=== PATIENT | female | born 1990 | race Caucasian/White ===

== ENCOUNTER 2021-12-18 17:23 | Emergency (ER) | payer OTHER, SELFPAY ==
--- NOTE | 2021-12-18 17:27 | ED.EYEPROB ---
HPI - Eye Problem General Chief complaint: Eye Problems Stated complaint: Eye Problem Time Seen by Provider: 12/18/21 17:39 Source: patient and RN notes reviewed Mode of arrival: ambulatory Limitations: no limitations History of Present Illness HPI Narrative: 31-year-old female presents with concern for right eye irritation, redness, pain. She reports several days ago when she was getting her hair colored eye color splashed in her eye. She reports the next morning she began having pain. She reports mild redness. She denies vision changes, drainage from the eye. She does not wear contact lenses. chief complaint: eye pain Related Data Allergies Allergy/AdvReac Type Severity Reaction Status Date / Time No Known Allergies Allergy Verified 12/18/21 17:40 Review of Systems Review of Systems: CONSTITUTIONAL: Denies malaise, chills, sweats, or fever. EYES: Denies visual changes, discharge. Reports redness, irritation, to the right eye ENT: Denies rhinorrhea, congestion, sinus pain, otalgia or sore throat. SKIN: Denies rash or itching. NEUROLOGIC: Denies numbness, weakness, or headache. PSYCHIATRIC: Denies anxiety or depression. All systems reviewed & are unremarkable except as noted in HPI and below PMFSH Comments At time of signature, agree with nursing past medical, surgical, social and family history. There is no relevant family history pertinent to the presenting complaint Exam Narrative: GENERAL: Well-appearing, well-nourished, and in no acute distress. HEAD: Normocephalic, atraumatic. EYES: PERRLA, left sclera clear, and EOMI. No nystagmus. Conjunctivae not injected. Lower eyelid unremarkable, no periorbital edema noted. Right sclera injected with mild upper eyelid edema ENT: Nares clear. Mucous membranes moist. TM pearly silveira with sharp light reflex bilaterally; no tragal tenderness. NECK: Supple. CHEST: No respiratory distress. Speaks in full sentences. HEART: Regular rate and rhythm. SKIN: Warm, dry, no visible rash. NEURO: Alert and oriented x3. PSYCH: Normal mood and affect Course Course Emergency Course: Patient is aware of diagnosis, understands and agrees to treatment plan. Anticipatory guidance given. Patient agrees to follow-up as directed and is aware of reasons to seek care at the emergency department. Portions of this record may have been created with voice recognition software Level of Care: Express Care Visit Vital Signs Vital signs: Reviewed. MDM - Eye Problem MDM Narrative Medical decision making narrative: Consideration of the following conditions may be warranted for the presenting problem, they are not final diagnoses: Bacterial conjunctivitis, allergic conjunctivitis, viral conjunctivitis, foreign body, blepharitis, chalazion, hordeolum, corneal abrasion, preseptal cellulitis, orbital cellulitis. No evidence of proptosis, ophthalmoplegia, vision loss, pain with eye movement. Exam findings show no acute concerns or changes; patient is non-toxic appearing and is in no distress. Patient is appropriate for outpatient treatment and follow-up. Critical Care Time Critical Care Time Critical Care Time: No Discharge Plan Discharge Clinical Impression: Conjunctivitis Qualifiers: Conjunctivitis type: acute Acute conjunctivitis type: unspecified Laterality: right Qualified Code(s): H10.31 - Unspecified acute conjunctivitis, right eye Patient Disposition: Home, Self-Care Condition: Stable Instructions: Conjunctivitis (ED) Additional Instructions: Do not touch or rub your eye. Use a warm or cool washcloth on your eye for comfort Use eyedrops as directed You may take Tylenol or ibuprofen for pain Follow-up with PCP or community product specialist if condition is not improving in 2-3days. Go to the emergency room if you have pain behind your eye, pressure behind her eye, difficulty seeing, or other severe symptoms Prescriptions: New neomycin-polymyxin B-dexameth 3.5mg/mL-10,000 unit/mL-0.1
[2021-12-18 17:30] VITALS: BP 114/72; PULSE 81; RESP 14; TEMP 36.7; O2SAT 99
[2021-12-18 17:40] VITALS: BP 114/72; PULSE 81; RESP 14; TEMP 36.7; O2SAT 99
== END 2021-12-18 17:51 | disposition home or self-care (01) ==
PROVIDERS: Emergency Provider Nurse Practitioner
DX: H10.31 Unspecified acute conjunctivitis, right eye (principal)
CPT/HCPCS: 99213; G0463

== ENCOUNTER 2021-12-25 03:40 | Observation (INO) | payer OTHER, SELFPAY ==
[2021-12-25] VITALS (13 sets, daily range): BP systolic 102–129; BP diastolic 56–77; PULSE 66–94; RESP 15–18; TEMP 36–36.7; O2SAT 97–100; BMI 28.8
--- NOTE | ~2021-12-25 | XR_ITS ---
EXAMINATION: XR chest 1V portable 12/25/2021 04:13 INDICATION: Chest pain PROCEDURE: 2 view chest COMPARISON: No prior studies for comparison. FINDINGS: The lungs are clear. The cardiomediastinal silhouette is within normal limits. There are no pleural effusions. There is no pneumothorax suspected. IMPRESSION: 1: NO ACUTE CARDIOPULMONARY DISEASE. Reviewed, dictated and finalized at location A. T DESK ADMIN
--- NOTE | 2021-12-25 03:43 | ECG_ITS ---
Measurements Intervals Maxwell Rate: 82 P: 10 MA: 132 QRS: 74 QRSD: 94 T: 35 QT: 389 QTc: 456 Interpretive Statements SINUS RHYTHM BORDERLINE T WAVE ABNORMALITY- ANTERIOR LEADS BASELINE ARTIFACT- I, II, III, AVR, AVL, V6 BORDERLINE ECG Electronically Signed On 12-25-2021 7:38:54 REPRODUCTIVE SURGEON by Sean Velazquez D.O.
--- NOTE | 2021-12-25 03:52 | ED.CHESTPAIN ---
HPI - Chest Pain General Chief Complaint: Chest Pain Stated Complaint: chest pain Time Seen by Provider: 12/25/21 03:43 Source: patient and RN notes reviewed Mode of arrival: ambulatory Limitations: no limitations History of Present Illness HPI narrative: 31-year-old female with no significant past medical history presented to the emergency department for evaluation of sharp chest pain. Patient states that she developed chest pain today. Patient states pain is substernal and sharp and brief. Patient states the pain is worsened with deep inspiration or with coughing. Patient does smoke. Patient is not vaccinated to COVID. Patient denies any associated fevers. Patient denies any recent long car rides or car trips. Patient is not on hormone therapy. Patient denies any prior history of PE or DVT. Patient denies any falls or injuries. Patient denies any cardiac history. Patient denies any new medications. Patient denies any recent illnesses other than a dry nonproductive cough Related Data Allergies Allergy/AdvReac Type Severity Reaction Status Date / Time No Known Allergies Allergy Verified 12/18/21 17:40 Review of Systems Review of Systems: CONSTITUTIONAL: Denies fever, chills, or sweats. EYES: Denies visual changes, redness, or discharge. ENT: Denies rhinorrhea, congestion, sore throat, or otalgia. CARDIOVASCULAR: Pleuritic chest pain worsened with deep inspiration and movement RESPIRATORY: Denies cough or dyspnea. GASTROINTESTINAL: Denies abdominal pain, nausea, vomiting, or diarrhea. GENITOURINARY: Denies dysuria or hematuria. SKIN: Denies rash or itching. MUSCULOSKELETAL: Denies back pain, joint pain, or myalgia. NEUROLOGIC: Denies headache, numbness, or weakness. All systems reviewed & are unremarkable except as noted in HPI and below Course Course Emergency Course: Patient does have an elevated troponin. Cardiology was consulted. Case was discussed with the hospitalist and patient was admitted with cardiology consult. Patient was stable at time of transfer the floor. Reevaluation(s) Reevaluation #1: Patient was updated on the results of her labs and imaging including the elevated troponin. Patient states that her pain is intermittent. Nitro was held because she was not having any active pain at the time. Patient was given aspirin. Patient was updated on the plan for admission and further cardiac work-up. Consultations Consultation #1: Dr. Becerril was consulted for cardiology. She did agree with the plan for admission and further cardiac work-up. She said to hold off on any heparin due to the possibility of pericarditis as the underlying etiology. Vital Signs Vital signs: Vital Signs Temperature 97.6 F 12/25/21 03:48 Pulse Rate 78 12/25/21 03:48 Respiratory Rate 16 12/25/21 03:48 Blood Pressure 125/69 12/25/21 03:48 Pulse Oximetry 100 12/25/21 03:48 Temperature 97.6 F 12/25/21 03:48 Pulse Rate 77 12/25/21 05:35 Respiratory Rate 18 12/25/21 05:35 Blood Pressure 117/71 12/25/21 05:35 Pulse Oximetry 98 12/25/21 05:35 MDM - Chest Pain Lab Data Attestation: I reviewed the patient's lab results. Result diagrams: 12/25/21 03:58 12/25/21 03:58 Labs: Lab Results 12/25/21 12/25/21 12/25/21 Range/Units 03:58 03:58 03:58 WBC 8.3 (4.5-10.0) K/mm3 RBC 3.87 L (4.2-5.4) M/mm3 Hgb 11.9 L (12.0-15.0) g/dL Hct 35.8 L (37.0-47.0) % MCV 92.5 (80-100) fl MCH 30.7 (26-34) pg MCHC 33.2 (32-36) g/dl RDW 12.3 (11.5-14.5) % Plt Count 279 (150-375) k/mm3 MPV 10.2 (7.4-10.4) fl Immature Gran % (Auto) 0.2 (0-0.5) % Neut % (Auto) 47.7 (45.5-73.1) % Lymph % (Auto) 39.0 (18.3-44.2) % Bland % (Auto) 10.0 H (2.6-8.5) % Eos % (Auto) 2.3 (0-4.4) % Baso % (Auto) 0.8 (0.2-1.2) % Lymph # (Auto) 3.25 H (0.9-3.2) K/mm3 Bland # (Auto) 0.8 H (0.1-0.6) K/mm3 Eos # (Auto) 0.2 (0-0.3) K
[2021-12-25 04:04] LABS: Basophils Absolute Auto 0.1 K/mm3 (0.0-0.1); Basophils Percent Auto 0.8 % (0.2-1.2); Eosinophils Absolute Auto 0.2 K/mm3 (0-0.3); Eosinophils Percent Auto 2.3 % (0-4.4); Hematocrit 35.8 % (37.0-47.0); Hemoglobin 11.9 g/dL (12.0-15.0); Immature Granulocyte Absolute 0.02 K/mm3 (0.00-0.031); Immature Granulocyte Percent A 0.2 % (0-0.5); Lymphocytes Absolute Auto 3.25 K/mm3 (0.9-3.2); Mean Corpuscular HGB Conc 33.2 g/dl (32-36); Mean Corpuscular Hemoglobin 30.7 pg (26-34); Mean Corpuscular Volume 92.5 fl (80-100); Mean Platelet Volume 10.2 fl (7.4-10.4); Monocytes Absolute Auto 0.8 K/mm3 (0.1-0.6); Neutrophils Percent Auto 47.7 % (45.5-73.1); Platelet Count Result 279 k/mm3 (150-375); Red Blood Count 3.87 M/mm3 (4.2-5.4); Red Cell Distribution Width 12.3 % (11.5-14.5); White Blood Count 8.3 K/mm3 (4.5-10.0)
[2021-12-25 04:17] LABS: Add Urine Microscopic? YES; Appearance Urine Cloudy (Clear); Bacteria Urine Trace /hpf; Bilirubin Urine Negative (Negative); Blood Urine 2+ (Negative); Color Urine Straw (Yellow); Glucose Urine UA Negative (Negative); Ketones Urine Negative (Negative); Leukocyte Esterase Ur Trace LEU/UL (Negative); Mucus Urine Rare /lpf; Nitrate Urine Negative (Negative); Protein Urine Negative (Negative); RBC Urine 0-2 /hpf (0-2); Squamous Epithelial Cell Urine Many /hpf (Few); Urobilinogen Urine Negative mg/dL (<2.0)
[2021-12-25 04:18] LABS: Specific Grav Ur 1.004 (1.001-1.035)
[2021-12-25 04:18] LABS: Alanine Aminotransferase 36 U/L (4-35); Albumin Level 4.7 g/dL (3.5-5.1); Alkaline Phosphatase 70 U/L (38-126); Anion Gap 9 mmol/L (8-16); Aspartate Amino Transferase 34 U/L (14-36); Bilirubin,Total 0.3 mg/dL (0.2-1.3); Blood Urea Nitrogen 16 mg/dL (7-17); Calcium 9.6 mg/dL (8.4-10.2); Carbon Dioxide 24 mmol/L (22-30); Chloride 103 mmol/L (98-107); Estimated CRCL calculation 81 ml/min; Estimated Glomerular Filt Rate > 60; Glucose 103 mg/dL (65-110); Potassium 3.1 mmol/L (3.4-5.0); Sodium 136 mmol/L (137-145)
[2021-12-25 04:42] LABS: D Dimer 0.27 ug/mL (<0.48)
[2021-12-25 04:47] LABS: Troponin I 0.072 ng/mL (0.000-0.034)
[2021-12-25] MEDS: ASPIRIN 81 MG CHEWABLE TABLET 324 MG PO (04:59)
[2021-12-25] MEDS: POTASSIUM CHLORIDE 20 MEQ PACKET (FOR LIQUID) 40 MEQ PO (04:59)
[2021-12-25 05:47] LABS: SARS-CoV-2 RNA PCR Negative
--- NOTE | 2021-12-25 06:22 | ADMGEN ---
This patient, Caroline Sanders, was admitted to 2 Medical Room 248-. Patient/family oriented to hospital policies and general routines including ID bracelet, bed and alarms, visiting hours, pain management, procedures, bathroom and other care routines, personal items, smoking policy, room service/diet, and visiting hours. Information on how to activate the Rapid Response Team has been discussed. Patient/Family are encouraged to report perceived risks to care and to ask questions if they do not understand what they are told or what they should do.
[2021-12-25 07:46] LABS: Troponin I 0.071 ng/mL (0.000-0.034)
[2021-12-25 08:05] LABS: Magnesium 2.2 mg/dL (1.6-2.3)
--- NOTE | 2021-12-25 08:57 | PM.IMHP ---
H&P: HPI History of Present Illness Date/Time: 12/25/21 08:57 Chief Complaint: CP Narrative: Patient is a 31-year-old woman with no chronic medical history in on any medications, who presents emergency room with chest pain which began around 2:00 a.m. while at work. Patient states she has been having intermittent chest pain over the last few months had been seen multiple times the emergency room in [place] for her symptoms. She states the chest pain is usually her left upper/ mid chest wall and it feels like sharp/ stabbing pain. She does not have any exacerbating factors. Usually her chest pain improves if she takes half of a 325 mg aspirin and lays down for a while. She denies any associated shortness of breath, cough, pain with taking a deep breath, nausea, diaphoresis, dyspnea with exertion or any other symptoms. 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 She was not doing anything strenuous when her symptoms began in became worse rated a 5/10 and was not resolving so she came to the emergency room for further evaluation workup. She did have some reproducible tenderness with palpation earlier, but now it is resolved. She believes at the aspirin in the emergency room help with her chest discomfort. She does report having some issues with anxiety. She denies being under any increased stress prior to her chest pain coming on last night. she denies any fevers, chills, recent cold or flu symptoms, nausea, vomiting, abdominal pain, diarrhea, leg swelling, calf pain, dysuria, frequent urination, lightheadedness, dizziness, or any other symptoms at this time. Review of Systems Review of Systems: All systems reviewed & are unremarkable except as noted in HPI and below [facility] Past Medical History Medical History (Updated 12/25/21 @ 09:02 by Lisa Noriega PA-C) No pertinent past medical history Surgical History Surgical History (Updated 12/25/21 @ 09:02 by Lisa Noriega PA-C) History of tubal ligation Family History Family History (Updated 12/25/21 @ 09:02 by Lisa Noriega PA-C) Other Acute myocardial infarction Other No pertinent family history Social History Social History (Updated 12/25/21 @ 09:04 by Lisa Noriega PA-C) Years smoked: 16 Smoking status: Current every day smoker Tobacco type: cigarettes Alcohol intake: current Drinks per week: 1 Alcohol use details: social alcohol use. 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 at a [place] [facility] [employer] [facility] Spiritual care concerns: No Meds Home Medications and Allergies Home Medications Medication Instructions Recorded Confirmed Type neomycin-polymyxin B-dexameth 1 drp RIGHT EYE Q6H 7 Days #5 ml 12/18/21 12/25/21 Rx Allergies Allergy/AdvReac Type Severity Reaction Status Date / Time No Known Allergies Allergy Verified 12/25/21 06:34 Vital Signs Vital Signs - 24 hr 12/25/21 03:48 12/25/21 03:57 12/25/21 04:51 Temperature 97.6 F Pulse Rate 78 82 90 Respiratory Rate 16 15 Blood Pressure 125/69 103/61 Pulse Oximetry 100 100 97 12/25/21 05:04 12/25/21 05:35 12/25/21 06:20 Temperature Pulse Rate 78 77 72 Respiratory Rate 15 18 15 Blood Pressure 129/77 117/71 111/63 Pulse Oximetry 100 98 100 12/25/21 06:24 Temperature 96.8 F L Pulse Rate 94 Respiratory Rate 18 Blood Pressure 110/58 L Pulse Oximetry 99 Exam Narrative: General: 31-year-old woman sitting up in bed on her phone watching TV. Appears comfortable. In no acute distress. Skin: No jaundice or cyanosis. Good skin turgor. Neck: Full range of motion. Supple.
--- NOTE | 2021-12-25 09:33 | PM.CNCAR ---
Assessment and Plan Assessment and plan (1) Myopericarditis: Code(s): I31.9 - Disease of pericardium, unspecified Status: Acute Assessment and Plan: 31-year-old female with no known prior cardiac history. Patient admitted to the hospital with complaints of sharp, transient substernal chest pain with features atypical for ischemia. EKG did not show any significant ST-T abnormality. Troponins are minimally elevated and essentially flat. Clinical presentation suggestive of myopericarditis. Patient is currently not and had history of tubal ligation. -check echocardiogram with Doppler to assess LV/RV function, valves and pericardium. -will initiate on ibuprofen plus colchicine along with PPI. -avoid strenuous activity for now. (2) Tobacco abuse: Code(s): Z72.0 - Tobacco use Status: Acute Assessment and Plan: I counseled patient for smoking cessation. History of Present Illness History of Present Illness Consult date/time: 12/25/21 09:33 DATE OF CONSULT: 12/25/2021 REASON FOR CONSULT: Elevated troponin REQUESTING PHYSICIAN:Wero Reno MD CHIEF COMPLAINT: Chest pain HPI: 31-year-old female with no known prior cardiac history; tobacco abuse. Patient presented to [facility] Emergency Room on 12/25/2021 with complaints of chest pain. Patient states that she has had off and on chest pain for last few months which he describes as sharp sensation in the substernal area, not related to exertion. She states that her chest pain worse last night and decided come to the hospital. She has been having dry cough. ER notes indicate that chest pain gets worse with cough and is on deep inspiration. However, today, patient denies those associations. She denied any other associated symptoms including shortness of breath, palpitation, dizziness or syncope. She denied any fever chills or any myalgias. No recent long distance travel. She denies any recent known infections. Patient is a smoker, smokes half pack per day. She denies any alcohol or any recreational drugs. 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 EKG on my personal evaluation showed sinus rhythm without significant ST-T abnormality. 2 sets of troponins minimally elevated and essentially flat. BNP unremarkable. D-dimer negative. CRP 0.6. Chest x-ray normal. Initial test negative for SARS-CoV-2 RNA. Reason For Visit: CP, Elevated Troponin Review of Systems Review of Systems: General: Negative for fever, chills, fatigue Psychological: Negative for anxiety, depression Ophthalmic: negative for loss of vision ENT: Negative for epistaxis, headaches Allergy and immunology: Negative for hives, nasal congestion Hematologic and lymphatic: Negative for overt bleeding problems Endocrine: Negative for hot flashes, palpitations Respiratory: Negative for cough, hemoptysis Cardiovascular: Positive for chest pain, negative for shortness of breath, palpitation, dizziness Gastrointestinal: Negative for abdominal pain Musculoskeletal: Negative for myalgia, joint pains Neurological: Negative for weakness Dermatological: Negative for rash, skin discoloration PMFSH Past Medical History Medical History No pertinent past medical history Surgical History Surgical History History of tubal ligation Family History Family History Other Acute myocardial infarction Other No pertinent family history Social History Social History Years smoked: 16 Smoking status: Current every day smoker Tobacco type: cigarettes Alcohol intake: current Drinks per week: 1 Alcohol use details: social alcohol use. Last drank 12/23/2021 Substance use: never Substance use type: does not use Living arrangements: with family Additional living arrangement
[2021-12-25 10:13] LABS: CRP 0.6 mg/dL (<1.0)
[2021-12-25 10:18] LABS: NT Pro B Type Natriuretic Pept 38 pg/mL (5-100)
[2021-12-25] MEDS: ACETAMINOPHEN 325 MG TABLET 650 MG PO (10:34)
[2021-12-25 11:25] LABS: Thyroid Stimulating Hormone Reflex 0.717 uIU/mL (0.465-4.68)
[2021-12-25] MEDS: IBUPROFEN 400 MG TABLET PO ×2 (12:49→17:25)
[2021-12-25] MEDS: COLCHICINE 0.6 MG TABLET PO (20:17)
[2021-12-26] VITALS: PULSE 57
--- NOTE | 2021-12-26 | ECHO_ITS ---
Patient Info Name: Caroline Sanders Age: 31 years : 1990 Gender: Female Ht: 67 in Wt: 184 lbs BSA: 2.01 m2 HR: 65 bpm BP: 105 / 55 mmHg Heart Rhythm: Sinus Rhythm Technical Quality: Fair Exam Date: 12/26/2021 7:52 AM Exam Location: [facility] Patient Status: Inpatient Admit Date: 12/25/2021 Staff Ordering Physician: Lisa Noriega PA-C Diamond Mounter: Ofelia Reddy RDCS Attending Provider: Lisa Noriega PA-C Referring Physician: Hari GONZALEZ; Exam Type: CA echo doppler with color flow transthoracic echocardiogram Study Info Indications - CP, Possible myopericarditis Complete two-dimensional, color flow and Doppler transthoracic echocardiogram is performed. Summary 1. Complete two-dimensional, color flow and Doppler transthoracic echocardiogram is performed. 2. Left ventricular chamber dimension is normal. 3. Left ventricular systolic function is normal, estimated at 65-70%. 4. There is no increased left ventricular wall thickness. 5. Left ventricular septal wall motion is normal. 6. The left ventricular diastolic function is normal. 7. There is mild tricuspid valve regurgitation. 8. Dilated inferior vena cava with <50% collapse upon inspiration consistent with elevated right atrial pressure, 15 mmHg. Left Ventricle Left ventricular chamber dimension is normal. Left ventricular systolic function is normal, estimated at 65-70%. There is no increased left ventricular wall thickness. Left ventricular septal wall motion is normal. The left ventricular diastolic function is normal. Right Ventricle Right ventricular chamber dimension is normal. Right ventricular systolic function is normal. Left Atria Left atrial chamber dimension is normal. Right Atria Right atrial chamber dimension is normal. Atrial Septum Intact interatrial septum visualized by color flow imaging. Aortic Valve The aortic valve is trileaflet. There is mild aortic valve sclerosis. There is no aortic valve stenosis. There is trace aortic valve regurgitation. Pulmonic Valve The pulmonic valve is normal. There is no pulmonic valve stenosis. There is trace pulmonic regurgitation. Mitral Valve The mitral valve has normal leaflets. There is no mitral valve stenosis. There is trace mitral valve regurgitation. Tricuspid Valve The tricuspid valve leaflets are normal. There is no significant tricuspid valve stenosis. There is mild tricuspid valve regurgitation. No pulmonary hypertension, estimated pulmonary arterial systolic pressure is 29 mmHg. Pericardium/Pleural The pericardium appears normal. There is no pericardial effusion. Inferior Vena Cava Dilated inferior vena cava with <50% collapse upon inspiration consistent with elevated right atrial pressure, 15 mmHg. Aorta The aortic root size at the sinus of Valsalva is normal. The prox ascending aorta size is normal. Left Ventricular Outflow Tract Name Value Normal LVOT 2D LVOT Diameter 2.00 cm LVOT Doppler LVOT Peak Gradient 5 mmHg LVOT Mean Gradient 2 mmHg L
[2021-12-26 04:00] VITALS: PULSE 64
[2021-12-26 05:51] LABS: Anion Gap 4 mmol/L (8-16); Blood Urea Nitrogen 13 mg/dL (7-17); Calcium 9.2 mg/dL (8.4-10.2); Carbon Dioxide 27 mmol/L (22-30); Chloride 107 mmol/L (98-107); Estimated CRCL calculation 99 ml/min; Estimated Glomerular Filt Rate > 60; Glucose 94 mg/dL (65-110); Potassium 4.2 mmol/L (3.4-5.0); Sodium 138 mmol/L (137-145)
[2021-12-26 06:31] VITALS: BP 105/55; PULSE 65; RESP 16; TEMP 36.8; O2SAT 100
[2021-12-26 08:00] VITALS: PULSE 68
[2021-12-26] MEDS: IBUPROFEN 400 MG TABLET PO ×2 (08:34→12:14)
[2021-12-26] MEDS: COLCHICINE 0.6 MG TABLET PO (08:34)
[2021-12-26] MEDS: PANTOPRAZOLE SOD SESQUIHYDRATE 20 MG TAB PO (08:34)
--- NOTE | 2021-12-26 08:47 | PM.PNCARD ---
Progress Note: A&P Assessment and Plan (1) Myopericarditis: Code(s): I31.9 - Disease of pericardium, unspecified Status: Acute Assessment and Plan: 31-year-old female with no known prior cardiac history. Patient admitted to the hospital with complaints of sharp, transient substernal chest pain with features atypical for ischemia. EKG did not show any significant ST-T abnormality. Troponins are minimally elevated and essentially flat. Clinical presentation suggestive of myopericarditis. Patient is currently not and had history of tubal ligation. Feels better today, denies chest pain at rest. Some pain with activity Echo showed normal EF, no significant valve pathology. Continue Ibuprofen 400mg t.i.d - will taper as outpatient Continue colchicine 0.6mg b.i.d. - will taper as outpatient Continue PPI Avoid strenuous activity for the time being. (2) Tobacco abuse: Code(s): Z72.0 - Tobacco use Status: Acute Assessment and Plan: She has been counseled on smoking cessation Subjective Date/time seen: 12/26/21 08:47 Cardiology follow up for pericarditis Feeling better today. Denies any chest pain at rest or with deep breathing, does say she has some pain when she is up and moving around. No other complaints. Wants to go home. Review of Systems Review of Systems: All systems reviewed & are unremarkable except as noted in HPI and below Exam Const: General: healthy appearing, comfortable and no acute distress HENMT: Head: normal to inspection Ears: hearing grossly normal bilaterally Eyes: General: appearance normal, both eyes and all related structures Resp: Effort & Inspection: normal respiratory effort Auscultation: clear to auscultation bilaterally Cardio: Jugular venous distension: no JVD Rate: regular rate Rhythm: regular rhythm Heart sounds: S1 normal heart sound present, S2 normal heart sound present, no murmurs and no rubs Peripheral pulses: Peripheral pulses 2+ throughout GI: Auscultation: normal bowel sounds Skin: General skin exam: normal color Neuro: General: patient oriented x3 Cognition (Neuro): normal cognition Speech: normal speech Extrem: General: normal to inspection Psych: Appearance: grossly normal Mental Status: mental status grossly normal Objective Data Vital Signs Vital Signs: Vital Signs - 24 hr 12/25/21 12:00 12/25/21 15:00 12/25/21 16:00 Temperature 36.3 C L Pulse Rate 78 71 66 Respiratory Rate 18 Blood Pressure 102/56 L Pulse Oximetry 99 12/25/21 20:00 12/25/21 21:37 12/26/21 00:00 Temperature 36.7 C Pulse Rate 77 78 57 L Respiratory Rate 18 16 Blood Pressure 103/59 L Pulse Oximetry 99 100 12/26/21 04:00 12/26/21 06:31 Temperature 36.8 C Pulse Rate 64 65 Respiratory Rate 16 Blood Pressure 105/55 L Pulse Oximetry 100 Intake/Output Intake/Output: Intake & Output 12/23/21 12/24/21 12/25/21 12/26/21 23:59 23:59 23:59 23:59 Intake Total 1260 400 Balance 1260 400 Meds/Results Medications: Active Medications Generic Name Dose Route Start Last Admin Trade Name Freq PRN Reason Stop Dose Admin Colchicine 0.6 mg 12/25/21 21:00 12/26/21 08:34 Colchicine 0.6 Mg Tablet PO 0.6 mg Q12HR GENESIS Administration Ibuprofen 400 mg 12/25/21 12:00 12/26/21 08:34 Ibuprofen 400 Mg Tablet PO 400 mg TIDWM GENESIS Administration Pantoprazole Sodium 20 mg 12/26/21 09:00 12/26/21 08:34 Pantoprazole Sod Sesquihydrate 20 Mg Tab PO 20 mg QAM GENESIS Administration Perflutren Lipid Microsphere 0 ml 12/25/21 12:25 Perflutren Lipid Microspheres 1.5 Ml Vial Diluted To 10 Ml Total Volume IV PUSH ONCE PRN adequate visualization Protocol Radiology Results: ITS Impressions Chest X-Ray 12/25/21 09:46 IMPRESSION: 1: NO ACUTE CARDIOPULMONARY DISEASE. Labs Labs: Laboratory Results - last 24 hr 12/25/21 12/25/21 12/25/21 09:
[2021-12-26 10:29] VITALS: O2SAT 97
--- NOTE | 2021-12-26 12:02 | PM.DS ---
DS: Admitting Diagnosis Discharge Date 12/26/21 Admitting Diagnosis Chest pain DS: Discharge Diagnosis Discharge Diagnosis (1) Chest pain: Qualifiers: Chest pain type: unspecified Qualified Code(s): R07.9 - Chest pain, unspecified Code(s): R07.9 - Chest pain, unspecified Status: Acute Assessment and Plan: Patient is a 31-year-old woman who presented with chest pain. she has been having intermittent chest pain for the last few months and has a consultation with a lift supervisor in January. 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 She denies any exacerbating or associated symptoms. Improvement of symptoms after taking aspirin in the emergency room. Initial vitals showed she was afebrile, normal blood pressure, heart rate, oxygenation on room air. Initial labs showed normal white blood cell count, normocytic anemia with a hemoglobin of 11, hematocrit 35% ( she is currently on day 5 her menstrual cycle). D-dimer was negative. Hypokalemia at 3.1. Creatinine 1.0, BUN 16. ALT minimally elevated at 36. Urinalysis with 2+ blood, trace leukocytes and many squamous cell a which appears to be a contamination and from her menstrual cycle. troponin was elevated 0.072. Repeat troponin trending down slightly at 0.071. EKG showed normal sinus rhythm with a heart rate of 82 beats per minute with some T-wave abnormality. Chest x-ray completed and was normal. Patient was given aspirin in the emergency room full-dose. She was admitted to the hospital for further evaluation and monitoring with a consultation to Cardiology. Cardiology evaluated the pt and is treating for possible myopericarditis with Ibuprofen and Colchicine along with PPI. echocardiogram which showed left ventricular chamber dimension is normal. Left ventricular systolic function is normal, estimated at 65-70%. There is no increased left ventricular wall thickness. Left ventricular septal wall motion is normal. The left ventricular diastolic function is normal. There is mild tricuspid valve regurgitation. Dilated inferior vena cava with <50% collapse upon inspiration consistent with elevated right atrial pressure, 15 mmHg. She is feeling better today without any concerns. Told to take Ibuprofen and Colchicine as prescribed and Cardiology will reach out about tapering dosing. Follow up with Cardiology in 1 week. Return to ER warnings given. Follow up instuctions given. She understands and agrees with the plan. All questions answered. (2) Elevated troponin: Code(s): R77.8 - Other specified abnormalities of plasma proteins Status: Acute Assessment and Plan: See above DS: Summary Hospital Course Hospital Course: See above Status at Discharge Cognitive/behavioral status at discharge: Stable, improved. Time Spent with Patient Time attestation: Total time spent providing and/or coordinating discharge services: 40 Time spent: Greater than 30 minutes Exam Narrative: General: 31-year-old woman sitting up in bed on her phone watching TV. Appears comfortable. In no acute distress. Skin: No jaundice or cyanosis. Good skin turgor. Neck: Full range of motion. Supple. Respiratory: Lungs are clear to auscultation bilaterally. No reproducible bony chest wall tenderness. Cardiovascular: The heart has a regular rate and rhythm without murmur. tele shows normal sinus rhythm with a heart rate of 70 beats per minute. Lower extremities: No lower extremity edema. Distal pulses are easily palpated. No calf tenderness to palpation. Gastrointestinal: The abdomen is soft, nontender and nondistended with active bowel sounds. Psychiatric: Lucid and oriented. Memory intact. Neurologic: No focal deficits. Speech is clear. No facial drooping. DS: Data Data Completed and Pending Labs on day of discharge: Labs from last 24 hours
== END 2021-12-26 13:30 | disposition home or self-care (01) ==
LOC: ANHED 04:01 → ANH2MED 06:11
PROVIDERS: Internal Medicine Cardiovascular Disease; Physician Assistant; Admitting Provider Internal Medicine; Emergency Provider Emergency Medicine; Visit Provider Family Medicine
DX: R07.9 Chest pain, unspecified (principal); I07.1 Rheumatic tricuspid insufficiency; R77.8 Other specified abnormalities of plasma proteins; F17.210 Nicotine dependence, cigarettes, uncomplicated; Z20.822 Contact with and (suspected) exposure to COVID-19; Z28.21 Immunization not carried out because of patient refusal
CPT/HCPCS: 36415; 71045; 80048; 80053; 81001; 81025; 83735; 83880; 84443; 84484; 85025; 85380; 86140; 87086; 87088; 93005; 93306; 99285; A9270; C8929; C9803; G0378; U0003; U0005

== ENCOUNTER 2022-02-21 11:13 | Emergency (ER) | payer OTHER, SELFPAY ==
[2022-02-21 11:18] VITALS: BP 115/65; PULSE 77; RESP 14; TEMP 37.3; O2SAT 100
--- NOTE | 2022-02-21 11:44 | ED.NECK ---
HPI - Neck Pain/Injury General Chief Complaint: Neck Pain/Injury Stated Complaint: Neck Pain Time Seen by Provider: 02/21/22 11:46 Source: patient and RN notes reviewed Mode of arrival: ambulatory Limitations: no limitations History of Present Illness HPI Narrative: 31-year-old female presents with concern for left-sided neck pain. Reports 3 days ago she was taking shower when she bent her head back she felt a pain shoot up the left side of her neck. She reports since then she has began having radiation down her left arm. She reports pain worsens when she rotates her neck to the left. She reports she has tried hot water in the shower to ease the pain without relief. Reports she is taken ibuprofen with little relief. She denies chest pain, shortness of breath. She denies rash, lesions. She denies weakness in any extremity. MD complaint: neck pain Related Data Home Medications Medication Instructions Recorded Confirmed sertraline 50 mg PO DAILY 02/21/22 02/21/22 Allergies Allergy/AdvReac Type Severity Reaction Status Date / Time No Known Allergies Allergy Verified 12/25/21 06:34 Review of Systems Review of Systems: CONSTITUTIONAL: Denies malaise, chills, sweats, or fever. CARDIOVASCULAR: Denies chest pain, palpitations, or edema. RESPIRATORY: Denies cough or dyspnea. SKIN: Denies rash or itching, bruising, redness, swelling. MUSCULOSKELETAL: Reports left-sided neck pain that radiates to the left arm NEUROLOGIC: Denies numbness, weakness All systems reviewed & are unremarkable except as noted in HPI and below PMFSH Past Medical History Medical History No pertinent past medical history Surgical History Surgical History History of tubal ligation Family History Family History Other Acute myocardial infarction Other No pertinent family history Social History Social History Years smoked: 16 Smoking status: Current every day smoker Tobacco type: cigarettes Alcohol intake: current Drinks per week: 1 Alcohol use details: social alcohol use. 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 There is no relevant family history pertinent to the presenting complaint Exam Narrative: GENERAL: Well-appearing, well-nourished, and in no acute distress. HEAD: Normocephalic, atraumatic. EYES: PERRLA and EOMI. NECK: Supple. No lymphadenopathy. No midline cervical tenderness. Mild lateral neck tenderness palpation, trapezius tenderness palpation CHEST: Clear to auscultation. No respiratory distress. HEART: Regular rate and rhythm. Distal pulses palpable and equal, cap refill <3 seconds MUSCULOSKELETAL: Normal range of motion and strength in upper extremities. Normal sensation in dermatomal distributions with sensitivity to light touch and pain. Transfers from sitting to standing. SKIN: Warm, dry, no rash. No ecchymosis, erythema, open wounds to neck NEURO: No focal deficits. Alert and oriented x3. PSYCH: Normal mood and affect Course Course Emergency Course: Patient is aware of diagnosis, understands and agrees to treatment plan. Anticipatory guidance given. Patient agrees to follow-up as directed and is aware of reasons to seek care at the emergency department. Portions of this record may have been created with voice recognition software Level of Care: Express Care Visit Vital Signs Vital signs: Vital Signs Temperature 9
== END 2022-02-21 12:00 | disposition home or self-care (01) ==
PROVIDERS: Emergency Provider Nurse Practitioner
DX: S16.1XXA Strain of muscle, fascia and tendon at neck level, initial encounter (principal); X58.XXXA Exposure to other specified factors, initial encounter; F17.210 Nicotine dependence, cigarettes, uncomplicated
CPT/HCPCS: 99213; G0463

== ENCOUNTER 2022-05-23 13:19 | Emergency (ER) | payer OTHER, SELFPAY ==
[2022-05-23 13:22] VITALS: BP 117/75; PULSE 88; RESP 16; TEMP 37.6; O2SAT 100
--- NOTE | 2022-05-23 14:22 | ED.URI ---
HPI - URI/Sore Throat General Chief Complaint: Upper Respiratory Infection Stated Complaint: sore throat and ear pain Time Seen by Provider: 05/23/22 14:05 Source: patient, RN notes reviewed and old records reviewed Mode of arrival: ambulatory Limitations: no limitations History of Present Illness HPI Narrative: 31-year-old female who presents with 3-day history of sore throat and right ear discomfort. Patient states pain has increased pain to throat especially with swallowing she has taken Tylenol,used cough drops and also has been taking salt water gargles with no improvement. Patient reports no fevers chills or sweats and reports no cough noted. Patient reports no drainage from her right ear, no ringing in her ear or decreased hearing. Patient has not had COVID vaccinations or flu shot. MD elicited complaint: sore throat and other (right ear pain) Onset (ago): day(s) (3) Pain scale (0-10): 8 Exacerbating factors: swallowing Treatments prior to arrival: acetaminophen and other (cough drops , salt water gargles.) Related Data Allergies Allergy/AdvReac Type Severity Reaction Status Date / Time No Known Allergies Allergy Verified 12/25/21 06:34 Review of Systems Review of Systems: CONSTITUTIONAL: Denies known fevers, no chills, or sweats. EYES: Denies visual changes, redness, or discharge. ENT: Denies rhinorrhea, congestion, positive for sore throat, right otalgia. CARDIOVASCULAR: Denies chest pain, palpitations, or edema. RESPIRATORY: Denies cough or dyspnea. GASTROINTESTINAL: Denies abdominal pain, nausea, vomiting, or diarrhea. GENITOURINARY: Denies dysuria or hematuria. SKIN: Denies rash or itching. MUSCULOSKELETAL: Denies back pain, joint pain, or myalgia. NEUROLOGIC: Denies headache, numbness, or weakness. PSYCHIATRIC: Positive for anxiety or depression. [facility] Past Medical History Medical History (Updated 05/26/22 @ 09:09 by Petra Santizo NP) Anxiety Surgical History Surgical History (Updated 05/26/22 @ 09:08 by Petra Santizo NP) H/O LEEP History of tubal ligation Family History Family History Other Acute myocardial infarction Other No pertinent family history Social History Social History Years smoked: 16 Smoking status: Current every day smoker Tobacco type: cigarettes Alcohol intake: current Drinks per week: 1 Alcohol use details: social alcohol use. 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 There is no relevant family history pertinent to the presenting complaint Exam Narrative: GENERAL: Well-appearing, well-nourished, and in no acute distress. HEAD: Normocephalic, atraumatic. EYES: PERRLA and EOMI. ENT: Nares clear, no rhinorrhea or epistaxis. Mucous membranes moist. TMs normal with good light reflex, throat red no lesions or exudate tonsils red swollen with painful swallowing NECK: Supple. Right-sided lymphadenopathy CHEST: Clear to auscultation. No respiratory distress. SaO2 100% on room air HEART: Regular rate and rhythm. No murmur heard. Normal peripheral pulses. ABDOMEN: Soft, nontender, nondistended, normal active bowel sounds. EXTREMITIES: Normal range of motion. No edema. SKIN: Warm, dry, no rash. NEURO: No focal deficits. Alert and oriented x3. Course Course Level of Care: Express Care Visit Vital Signs Vital signs: Vital Signs Temperature 37.6 C 05/23/22 13:22 Pulse Rate 88 05/23/22 13:22 Respiratory Rate 16 05/23/22 13:22 Blood Pressure 117/75 0
== END 2022-05-23 14:40 | disposition home or self-care (01) ==
PROVIDERS: Emergency Provider Registered Nurse
DX: J02.0 Streptococcal pharyngitis (principal); F17.210 Nicotine dependence, cigarettes, uncomplicated
CPT/HCPCS: 87880; 99213; G0463

== ENCOUNTER 2024-02-09 14:54 | Emergency (ER) | payer OTHER, SELFPAY ==
[2024-02-09 15:00] VITALS: BP 118/71; PULSE 90; RESP 18; TEMP 37.1; O2SAT 98
--- NOTE | 2024-02-09 15:46 | ED.GENADULT ---
HPI - General Adult General Chief complaint: Dental/Oral Stated complaint: Tooth pain Source: patient Mode of arrival: ambulatory Limitations: no limitations History of Present Illness HPI narrative: Patient presents for evaluation of right upper dental pain. Symptom onset 1 week ago. She states the pain is constant, throbbing, 7/10 severity. Denies any fever, chills, nausea, vomiting, trismus, problems handling secretions. She tried taking ibuprofen, Tylenol and also applied Orajel without considerable improvement in her symptoms or after. She smokes approximately 1 pack per day. Related Data Allergies Allergy/AdvReac Type Severity Reaction Status Date / Time No Known Allergies Allergy Verified 02/09/24 15:04 Review of Systems Review of Systems: CONSTITUTIONAL: Denies fever, chills, or sweats. EYES: Denies visual changes, redness, or discharge. ENT: Reports right upper dental pain. Denies rhinorrhea, congestion, sore throat, or otalgia. CARDIOVASCULAR: Denies chest pain, palpitations, or edema. RESPIRATORY: Denies cough or dyspnea. GASTROINTESTINAL: Denies abdominal pain, nausea, vomiting, or diarrhea. GENITOURINARY: Denies dysuria or hematuria. SKIN: Denies rash or itching. MUSCULOSKELETAL: Denies back pain, joint pain, or myalgia. NEUROLOGIC: Denies headache, numbness, dizziness, or weakness. PSYCHIATRIC: Denies anxiety or depression. [facility] Past Medical History Medical History Anxiety Pain, dental Surgical History Surgical History H/O LEEP History of tubal ligation Family History Family History Other Acute myocardial infarction Other No pertinent family history Social History Social History Years smoked: 16 Smoking status: Current every day smoker Tobacco type: cigarettes Alcohol intake: current Drinks per week: 1 Alcohol use details: social alcohol use. 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 HEAD: Normocephalic, atraumatic. EYES: PERRLA and EOMI. ENT: Nares clear, no rhinorrhea or epistaxis. Mucous membranes moist. There appears to be a dental cavity noted to tooth #18. No visible or palpable abscess. Oropharynx without tonsillar hypertrophy exudate or other lesions. Bilateral TMs pearly silveira nonbulging NECK: Supple. No adenopathy or masses. No carotid bruits or JVD CHEST: Clear to auscultation. No respiratory distress. No wheezes rales or rhonchi HEART: Regular rate and rhythm. No murmur heard. Normal peripheral pulses. ABDOMEN: Soft, nontender, nondistended, normal active bowel sounds. EXTREMITIES: Normal range of motion. No edema. SKIN: Warm, dry, no rash. NEURO: No focal deficits. Alert and oriented x3. PSYCH: Normal mood and affect. Course Course Emergency Course: This is a 33-year-old female who presented for evaluation of right upper dental pain. She appears to have a dental cavity present. While I do not appreciate a dental abscess, she could have an early forming infection. Will dc with PCN and tramadol. Pt advised not to smoke. Follow up with dentist and PCP. Go to the ER for worsening symptoms. Pt in agreement with plan of care. Level of Care: Express Care Visit Vital Signs Vital signs: Vital Signs Temperature 37.1 C 02/09/24 15:00 Pulse Rate 90 02/09/24 15:00 R
== END 2024-02-09 15:44 | disposition home or self-care (01) ==
PROVIDERS: Emergency Provider Nurse Practitioner
DX: K02.9 Dental caries, unspecified (principal); F17.210 Nicotine dependence, cigarettes, uncomplicated
CPT/HCPCS: 99213; G0463

== ENCOUNTER 2025-01-28 11:17 | Emergency (ER) | payer SELFPAY ==
[2025-01-28 11:23] VITALS: BP 114/64; PULSE 83; RESP 20; TEMP 36.3; O2SAT 100
--- NOTE | 2025-01-28 11:37 | ED.DENTAL ---
HPI - Dental/Oral General Chief complaint: Dental/Oral Stated complaint: Toothache Source: patient Mode of arrival: ambulatory History of Present Illness HPI Narrative: 34 y/o female presented for c/o left upper wisdom tooth pain for one week. Denies facial swelling or difficulty swallowing. She is taking ibuprofen and tylenol. Says she saw a dentist but cannot get in to see an oral surgeon. MD Complaint: tooth pain Related Data Allergies Allergy/AdvReac Type Severity Reaction Status Date / Time No Known Allergies Allergy Verified 01/28/25 11:26 Review of Systems Review of Systems: CONSTITUTIONAL: Denies body aches, fever, chills ENT: Denies rhinorrhea, congestion, sore throat, or otalgia. Reports dental pain CARDIOVASCULAR: Denies chest pain, palpitations RESPIRATORY: Denies cough or dyspnea. SKIN: Denies rash, itching, or wounds. MUSCULOSKELETAL: Denies myalgia. NEUROLOGIC: Denies headache, numbness, tingling, or weakness. [facility] Past Medical History Medical History Anxiety Pain, dental Surgical History Surgical History H/O LEEP History of tubal ligation Family History Family History Other Acute myocardial infarction Other No pertinent family history Social History Social History Years smoked: 16 Smoking status: Current every day smoker Tobacco type: cigarettes Alcohol intake: current Drinks per week: 1 Alcohol use details: social alcohol use. 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 Please see nursing chart for further information. There is no relevant family history pertinent to the presenting complaint Exam Narrative: GENERAL: well appearing HEAD: Normocephalic, atraumatic. EYES: EOMI. No redness or drainage. Conjunctivae normal. ENT: Dental pain location of # 16,darkened area to the junction of tooth and gumline, no significant gum swelling or drainage, no facial swelling. Mucous membranes pink and moist. TMs normal bilaterally. Throat normal; uvula midline, no airway compromise or soft palate swelling NECK: Normal AROM. No lymphadenopathy. no induration below mandible, no neck pain. CHEST: No respiratory distress. Clear to auscultation. HEART: Regular rate and rhythm. No murmur appreciated. NEURO: Alert and oriented x3. Course Course Emergency Course: Patient is aware of diagnosis, understands and agrees to treatment plan. Anticipatory guidance given. Patient agrees to follow-up as directed and is aware of reasons to seek care at the emergency department. Portions of this record may have been created with voice recognition software Level of Care: Express Care Visit Vital Signs Vital signs: Vital Signs Temperature 97.4 F L 01/28/25 11:23 Pulse Rate 83 01/28/25 11:23 Respiratory Rate 20 01/28/25 11:23 Blood Pressure 114/64 01/28/25 11:23 Pulse Oximetry 100 01/28/25 11:23 Oxygen Delivery Room Air 01/28/25 11:23 Temperature 97.4 F L 01/28/25 11:23 Pulse Rate 83 01/28/25 11:23 Respiratory Rate 20 01/28/25 11:23 Blood Pressure 114/64 01/28/25 11:23 Pulse Oximetry 100 01/28/25 11:23 Oxygen Delivery Room Air 01/28/25 11:23 MDM - Dental/Oral MDM Narrative Medical decision making narrative: Patients pain and complaint coupled with physical findings are consistent with dentalgia, no apparent abscess noted. There are no focal signs of space occupying lesions that are compromising to the airway; . Patient is non-toxic appearing. The floor of the mouth is soft with no signs of Mitesh's Angina; Patient is without trismus or drooling and able to swallow secretions. Patient is felt appropriate for discharge home with dental follow up, provided with a list. Differential Diagnosis Differential diagnosis: Likely gingival abscess, dental caries, toothache, dental abscess, fracture of tooth and aphthous ulcer Discharge Plan Discharge Clinical Impression: Pain, dental Patient Disposition: Home, Self-Care Condition: Stable Instructions: Antibiotic Form, Toothache (ED) Additional Instructions: Take antibiotic as directed May apply heat or ice to the face Gentle brushing and flossing. Rinse mouth with warm salt water at least 2 times a day. Alternate Tylenol and ibuprofen as needed for pain Follow-up with the dentist as soon as possible--see the list provided. You may need to follow with an oral surgeon. Go to the ER for worsening symptoms or concerns Patient Language: Tajik Prescriptions: New ibuprofen 800 mg tablet 800 mg PO TID PRN (Reason: pain) Qty: 15 0RF lidocaine HCl [Lidocaine Viscous] 2 % solution 1 applic mucous membrane TID PRN (Reason: pain) Qty: 100 0RF Rx Instructions: apply with cotton swab to site of pain amoxicillin-pot clavulanate 875-125 mg tablet 1 tablet PO Q12H 7 Days Qty: 14 0RF Follow-up/Referrals: Howard,Yandy Nance MD [Primary Care Provider] - Time of Disposition: 11:49
--- OUTSIDE RECORDS SUMMARY | 2025-01-28 13:01 | XMS_ITS | Encounter Summary ---
Author Organization [facility] Address [address] [place] [address] Phone Care Team Providers Care Supervisor Ornamental Ironworking Name Role Phone Provider, None Primary Care Provider Mary Ellen Cooper APRN, RENAL DIALYSIS TECHNICIAN Unavailable [phone] Mary Ellen Dias APRN, ANA Primary Care Provider Janet Camarillo MD Primary Care Provider [phone] Yandy Lawrence MD Primary Care Provider + [phone] Encounter Details Date Type Department Care Team (Late st Contact Info) Description 11/23/2021 Telephone [facility] Hospitalist Program [address] [place] [address] Provider, None [place] Social History Tobacco Use Types Packs/Day Years Used Date Smoking Tobacco: Never Smokeless Tobacco: Never Alcohol Use Standard Drinks/Week Comments Not Currently 0 (1 standard drink = 0.6 oz pur e alcohol) Comments Unknown Sex and Gender Information Value Date Recorded Sex Assigned at Female 07/03/2023 8:49 AM CDT Legal Sex Female 11:36 PM CDT Gender Identity Female 07/03/2023 8:49 AM CDT Sexual Orientation Not on file COVID-19 Exposure Response Date Recorded In the last month, have you been in contact with someone who was confirmed or suspected to have Coronavirus / COVID-19? No / Unsure 11/23/2021 10:59 AM ESCROW CLOSER documented as of this encounter Miscellaneous Notes * Telephone Encounter - Steven Camp - 11/23/2021 8:19 AM CST ----- Message from Heidi Kearns sent at 11/22/2021 1:25 PM ESCROW CLOSER ----- Regarding: New Pt appointment New [facility] Primary Provider Request Insurance of patient: [place] Name of person calling: Caroline Relationship to patient:self Preferred phone number: [phone] Alternate phone number: none Region / Office location preference: [place] Provider preference (male/female, specific provider name): Female Willing to see someone other than physician, such as KEG VARNISHER, [place], resident? 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 documented in this encounter Plan of Treatment Not on file documented as of this encounter Visit Diagnoses Not on filedocumented in this encounter Care Teams Supervisor [employer]al Ironworking Relationship Specialty Start Date End Date Provider, None [place] PCP - General 09/26/19 11/27/21 Mary Ellen Dias APRN, RENAL DIALYSIS TECHNICIAN [address] [place] [address] PCP - General Advanced Practice Nurse 11/28/21 Janet Camarillo MD [address] [place] [address] PCP - General Family Medicine 07/04/23 07/17/24 Yandy Lawrence MD [address] [place] [address] PCP - General Family Medicine 07/18/24 Mary Ellen Dias APRN, RENAL DIALYSIS TECHNICIAN [address] [place] [address] Nurse Practitioner Advanced Practice Nurse 11/28/2110/13 documented as of this encounter
--- OUTSIDE RECORDS SUMMARY | 2025-01-28 13:01 | XMS_ITS | Data Portability ---
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, no new issues other than getting fat kids 16,14,11,9 std testing due to new partner Not available 07/17/2023 17:16:43 08/09/2023 08/09/2023 Still doesnt trust current partner ( discussed this at length...) will get std testing and possible BV test done today Not available 08/09/2023 16:25:57 01/17/2024 01/17/2024 discussed options with patient already HSV2 +, so will not do 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 Lab RPR (rapid plasma reagin), serum 2023 024 [facility], [address] [facility] [address], [place], [address], 4 11:15:03 HBsAg (hepatitis B surface Ag), EIA, serum 2023 024 [facility], [address] [facility], [place], [address], 4 11:15:03 Hepatitis C IgG Ab, qual, serum 2023 024 [facility], [facility], [facility], [place], [address], 4 11:15:01 HIV 1 + 2, meaningful use set 2023 024 [facility], [address] [place] [address], [facility] [address], [place], [address], 4 11:15:04 HSV 2 IgG Ab, QN, IA, serum 2023 024 [facility], [facility], [facility], [place], [address], 4 11:15:02 cytology report, thin prep, smear or scraping, cervical or vaginal 2023 024 [facility], [facility], [facility], [place], [address], 4 07:07:43 chlamydia trachomatis + neisseria gonorrhoeae + trichomonas vaginalis DNA panel, ANTONIO+probe, unspecified specimen 2023 024 [facility], [address] [facility], [place], [address], 4 07:08:22 HBsAg (hepatitis B surface Ag), EIA, serum 2023 024 [facility], [facility], [place], [address], 4 07:14:50 Hepatitis C IgG Ab, qual, serum 2023 024 [facility], [address], [place], [address], 4 07:14:49 HIV 1 + 2, meaningful use set 2023 024 [facility], [address], [place], [address], 4 07:14:51 RPR (rapid plasma reagin), serum 2023 024 [facility], [address], [place], [address], 4 07:14:50 vaginal pathogens panel, ANTONIO+probe, vaginal fluid 2022 023 [facility], [address], [place], [address], 3 16:08:45 RPR (rapid plasma reagin), serum 2022 023 [facility], [address], [place], [address], 3 16:08:46 HIV 1 + 2, meaningful use set 2022 023 [facility], [address], [place], [address], 3 16:08:47 HBsAg (hepatitis B surface Ag), EIA, serum 2022 023 [facility], [address], [place], [address], 3 16:08:46 Hepatitis C IgG Ab, qual, serum 2022 023 [facility], [address], [place], [address], 3 16:08:45 cytology report, thin prep, smear or scraping, cervical or vaginal 2022 023 [facility], [address] [place] [address], [facility] [address], [place], [address], 3 11:15:52 chlamydia trachomatis + neisseria gonorrhoeae + trichomonas vaginalis DNA panel, ANTONIO+probe, unspecified specimen 2022 023 [facility], [address] [place] [address], [facility] [address], [place], [address], 3 07:15:29 HIV 1 + 2, meaningful use set 2022 023 [facility], [address] [place] [address], [facility] [address], [place], [address], 3 07:15:31 HBsAg (hepatitis B surface Ag), EIA, serum 2022 023 [facility], [address] [place] [address], [facility] [address], [place], [address], 3 07:15:30 Hepatitis C IgG Ab, qual, serum 2022 023 [facility], [address] [place] [address], [facility] [address], [place], [address], 3 07:15:29 RPR (rapid plasma reagin), serum 2022 023 [facility], [address] [place] [address], [facility] [address], [place], [address], 3 07:15:31 Referral None recorded. Procedures None recorded. Surgeries None recorded. Imaging None recorded. Medication Orders Bactrim DS 800 mg-160 mg tablet 2022 023 [id number], [address] [facility] [facility], [place], [address], 3 14:48:01 Patient TargetsNo targets recorded. Patient Instructions Encounter Date Encounter Id Patient Instructions Last Modified By Organization Details Last Modified Time 04/26/2023 [id number] Quitting Tobacco : Care Instructions Not available 04/26/2023 16:51:04 07/17/2023 [id number] A healthy lifestyle: care instructions Not available 07/17/2023 17:11:02 07/17/2024 [id number] Quitting Tobacco : Care Instructions Not available 07/17/2024 15:43:38 Reason for Referral None Reported. Results Created Date Observation Date Name Description Value Unit Range Abnormal Flag Note LastModifiedBy Organization Detail LastModifiedTime 04/26/2004/27/2023 HCV ANTIB WES hep C virus Ab Non Reacti ve nonrea ctive HCV antib wes alone does not diffe renti ate betwe en previ ously resol jacquelin infec tion and activ e infec tion. Equiv ocal and React jessica HCV antib wes resul ts shoul d be follo wed up with an HCV RNA test to suppo rt the diagn osis of activ e HCV infec tion. Not Available [facility] ([facility]) [address] [place], [address], 04/28/2023 07:15:29 04/26/2004/27/2023 CT, NG, TRICH VAG BY ANTONIO chlamydia by ANTONIO Negati ve negati ve Not Available [facility] ([facility]) [address] [place], [address], 04/28/2023 07:15:29 04/26/2004/27/2023 CT, NG, TRICH VAG BY ANTONIO gonococcus by ANTONIO Negati ve negati ve Not Available [facility] ([facility]) [address] [place], [address], 04/28/2023 07:15:29 04/26/2004/27/2023 CT, NG, TRICH VAG BY ANTONIO trich vag by ANTONIO Negati ve negati ve Not Available [facility] ([facility]) [address] [place], [address], 04/28/2023 07:15:29 04/26/20 23 04/27/2023 HBSAG SCREE N HBsAg screen Negati ve negati ve Not Available [facility] ([facility]) [address] [place], [address], 04/28/2023 07:15:30 04/26/20 23 04/27/2023 RPR, RFX QN RPR/C ONFIR M TP RPR Non Reacti ve nonrea ctive Not Available [facility] ([facility]) [address] [facility], [place], [address], 04/28/2023 07:15:31 04/26/20 23 04/27/2023 HIV AB/P2 4 AG WITH REFLE X HIV Ab/P24 Ag screen Non Reacti ve nonrea ctive HIV Negat jessica HIV-1 /HIV- 2 antib odies and HIV-1 p24 antig en were NOT detec elver. There is no labor atory evide nce of HIV infec tion. Not Available [facility] ([facility]) [address] [place], [address], 04/28/2023 07:15:31 07/17/20 23 07/19/2023 IGP,C TNGTV ,RFX APTIM A HPV ASCU chlamydia, nuc. acid amp Negati ve negati ve Not Available [facility] ([facility]) [address] [place], [address], 07/20/2023 11:15:52 07/17/20 23 07/19/2023 IGP,C TNGTV ,RFX APTIM A HPV ASCU gonococcus, nuc. acid amp Negati ve negati ve Not Available [facility] ([facility]) [address] [place], [address], 07/20/2023 11:15:52 07/17/20 23 07/19/2023 IGP,C TNGTV ,RFX APTIM A HPV ASCU trich vag by ANTONIO Negati ve negati ve Not Available [facility] ([facility]) [address] [place], [address], 07/20/2023 11:15:52 07/17/20 23 07/20/2023 IGP,C TNGTV ,RFX APTIM A HPV ASCU diagnosis: Cristian streeter NEGAT JESSICA FOR INTRA EPITH ELIAL LESIO N OR MAYELA ANNA . Not Available [facility] ([facility]) [address] [facility], [place], [address], 07/20/2023 11:15:52 07/17/20 23 07/20/2023 IGP,C TNGTV ,RFX APTIM A HPV ASCU specimen adequacy: Cristian streeter Satis facto jadyn for evalu ation . No endoc ervic al compo nent is ident ified . Not Available [facility] ([facility]) [address] [facility], [place], [address], 07/20/2023 11:15:52 07/17/20 23 07/20/2023 IGP,C TNGTV ,RFX APTIM A HPV ASCU clinician provided ICD10: Cristian streeter Z01.4 19 Not Available [facility] ([facility]) [address] [place], [address], 07/20/2023 11:15:52 07/17/20 23 07/20/2023 IGP,C TNGTV ,RFX APTIM A HPV ASCU performed by: Cristian Tabares th, Cytot dov streeter (ASCP ) Not Available [facility] ([facility]) [address] [place], [address], 07/20/2023 11:15:52 07/17/20 23 07/20/2023 IGP,C TNGTV ,RFX APTIM A HPV ASCU . . Not Available [facility] ([facility]) [address] [place], [address], 07/20/2023 11:15:52 07/17/2007/20/2023 IGP,C TNGTV ,RFX APTIM A HPV ASCU note: Commen t The Pap smear is a scree toña test desig elvi to aid in the detec tion of chinedu ligna nt and malig nant condi tions of the uteri ne cervi x. It is not a diagn ostic proce dure and shoul d not be used as the sole means of detec ting cervi curtis cance r. Both false -posi tive and false -nega tive repor ts do occur . Not Available [facility] ([facility]) [address] [facility], [place], [address], 07/20/2023 11:15:52 07/17/2007/20/2023 IGP,C TNGTV ,RFX APTIM A HPV ASCU test methodology: Commen t This liqui d based ThinP rep(R ) pap test was scree elvi with the use of an image guide d syste m. Not Available [facility] ([facility]) [address] [facility], [place], [address], 07/20/2023 11:15:52 07/17/2007/20/2023 IGP,C TNGTV ,RFX APTIM A HPV ASCU . Commen t The HPV DNA refle x crite juan were not met with this speci men resul t there fore, no HPV testi ng was perfo rmed. Not Available [facility] ([facility]) [address] [facility], [place], [address], 07/20/2023 11:15:52 08/09/2008/10/2023 HCV ANTIB WES hep C virus Ab Non Reacti ve nonrea ctive HCV antib wes alone does not diffe renti ate betwe en previ ously resol jacquelin infec tion and activ e infec tion. Equiv ocal and React jessica HCV antib wes resul ts shoul d be follo wed up with an HCV RNA test to suppo rt the diagn osis of activ e HCV infec tion. Not Available [facility] ([facility]) [address] [facility], [place], [address], 08/12/2023 16:08:45 08/09/20 23 08/12/2023 NUSWA B VAGIN ITIS PLUS (VG+) atopobium vaginae High - 2 score abnormal Not Available [facility] ([facility]) [address] [facility], [place], [address], 08/12/2023 16:08:45 08/09/20 23 08/12/2023 NUA B VAGIN ITIS PLUS (VG+) bvab 2 High - 2 score abnormal Not Available [facility] ([facility]) [address] [facility], [place], [address], 08/12/2023 16:08:45 08/09/20 23 08/12/2023 NUSWA B VAGIN ITIS PLUS (VG+) megasphaera 1 High - 2 score abnormal Calcu late total score by terrie g the 3 indiv idual bacte rial vagin osis (BV) marke r score s toget her. Total score is inter prete d as follo ws: Total score 0-1: Indic ates the absen ce of BV. Total score 2: Indet ermin ate for BV. Addit ional clini curtis data shoul d be evalu ated to estab radha a diagn osis. Total score 3-6: Indic ates the prese nce of BV. This test was devel oped and its perfo rmanc e maribel cteri stics deter mined by [facility]. It has not been clear ed or appro jacquelin by the Food and Drug Admin istra tion. Not Available [facility] ([facility]) [address] [facility], [place], [address], 08/12/2023 16:08:45 08/09/20 23 08/12/2023 NUSWA B VAGIN ITIS PLUS (VG+) shahnaz albicans, ANTONIO Negati ve negati ve Not Available [facility] ([facility]) [address] [facility], [place], [address], 08/12/2023 16:08:45 08/09/20 23 08/12/2023 NUSWA B VAGIN ITIS PLUS (VG+) shahnaz glabrata, ANTONIO Negati ve negati ve Not Available [facility] ([facility]) [address] [facility], [place], [address], 08/12/2023 16:08:45 08/09/20 23 08/12/2023 NUSWA B VAGIN ITIS PLUS (VG+) trich vag by ANTONIO Negati ve negati ve Not Available [facility] ([facility]) [address] [facility], [place], [address], 08/12/2023 16:08:45 08/09/20 23 08/12/2023 NUSWA B VAGIN ITIS PLUS (VG+) chlamydia trachomatis, ANTONIO Negati ve negati ve Not Available [facility] ([facility]) [address] [facility], [place], [address], 08/12/2023 16:08:45 08/09/20 23 08/12/2023 NUSWA B VAGIN ITIS PLUS (VG+) neisseria gonorrhoeae, ANTONIO Negati ve negati ve Not Available [facility] ([facility]) [address] [facility], [place], [address], 08/12/2023 16:08:45 08/09/20 23 08/10/2023 HBSAG SCREE N HBsAg screen Negati ve negati ve Not Available [facility] ([facility]) [address] [facility], [place], [address], 08/12/2023 16:08:46 08/09/20 23 08/10/2023 RPR, RFX QN RPR/C ONFIR M TP RPR Non Reacti ve nonrea ctive Not Available [facility] ([facility]) [address] [facility], [place], [address], 08/12/2023 16:08:46 08/09/20 23 08/10/2023 HIV AB/P2 4 AG WITH REFLE X HIV Ab/P24 Ag screen Non Reacti ve nonrea ctive HIV Negat jessica HIV-1 /HIV- 2 antib odies and HIV-1 p24 antig en were NOT detec elver. There is no labor atory evide nce of HIV infec tion. Not Available [facility] ([facility]) [address] [facility], [place], [address], 08/12/2023 16:08:47 01/17/20 24 01/19/2024 HCV ANTIB WES hep C virus Ab Non Reacti ve nonrea ctive HCV antib wes alone does not diffe renti ate betwe en previ ously resol jacquelin infec tion and activ e infec tion. Equiv ocal and React jessica HCV antib wes resul ts shoul d be follo wed up with an HCV RNA test to suppo rt the diagn osis of activ e HCV infec tion. Not Available [facility] ([facility]) [address] [facility], [place], [address], 01/19/2024 07:14:49 01/17/20 24 01/19/2024 HBSAG SCREE N HBsAg screen Negati ve negati ve Not Available [facility] ([facility]) [address] [facility], [place], [address], 01/19/2024 07:14:50 01/17/20 24 01/18/2024 RPR, RFX QN RPR/C ONFIR M TP RPR Non Reacti ve nonrea ctive Not Available [facility] ([facility]) [address] [facility], [place], [address], 01/19/2024 07:14:50 01/17/20 24 01/18/2024 HIV AB/P2 4 AG WITH REFLE X HIV Ab/P24 Ag screen Non Reacti ve nonrea ctive HIV Negat jessica HIV-1 /HIV- 2 antib odies and HIV-1 p24 antig en were NOT detec elver. There is no labor atory evide nce of HIV infec tion. Not Available [facility] ([facility]) [address] [facility], [place], [address], 01/19/2024 07:14:51 01/17/20 24 01/20/2024 CT, NG, TRICH VAG BY ANTONIO chlamydia by ANTONIO Negati ve negati ve Not Available [facility] ([facility]) [address] [place], [address], 01/20/2024 07:08:22 01/17/20 24 01/20/2024 CT, NG, TRICH VAG BY ANTONIO gonococcus by ANTONIO Negati ve negati ve Not Available [facility] ([facility]) [address] [facility], [place], [address], 01/20/2024 07:08:22 01/17/20 24 01/20/2024 CT, NG, TRICH VAG BY ANTONIO trich vag by ANTONIO Negati ve negati ve Not Available [facility] ([facility]) [address] [facility], [place], [address], 01/20/2024 07:08:22 07/17/20 24 07/18/2024 HCV ANTIB WES hep C virus Ab NON REACTI VE nonrea ctive HCV antib wes alone does not diffe renti ate betwe en previ ously resol jacquelin infec tion and activ e infec tion. Equiv ocal and React jessica HCV antib wes resul ts shoul d be follo wed up with an HCV RNA test to suppo rt the diagn osis of activ e HCV infec tion. Not Available [facility] ([facility]) [address] [place], [address], 07/18/2024 11:15:01 07/17/20 24 07/18/2024 HSV-2 AB, IGG hsv 2 IgG, type spec 2.57 index 0.00-0 .90 above high normal Negat jessica <0.91 Equiv ocal 0.91 - 1.09 Posit jessica >1.09 HSV-2 Antib wes Inter preta tion: Curre nt guide lines and recom menda tions do not recom mend routi ne scree toña for HSV-2 in asymp tomat ic indiv idual s, inclu ding those that are pregn ant. A negat jessica antib wes resul t indic ates no detec table antib odies to HSV-2 were found . If recen t expos ure is suspe cted, retes t in 4 to 6 weeks . Equiv ocal sampl es shoul d be retes elver in 4 to 6 weeks . A posit jessica resul t indic ates the prese nce of detec table IgG antib wes to HSV-2 . FALSE POSIT JESSICA RESUL TS MAY OCCUR . Repea t testi ng, or testi ng by a diffe teot didier brewer, may be indic ated in some setti ngs (e.g. patie nts with low likel ihood of HSV infec tion) . If clini arash appro priat e, retes t 4 to 6 weeks later . HSV-2 IgG antib wes testi ng resul ts shoul d be clini arash margarita delatorre . Not Available [facility] ([facility]) [address] [facility], [place], [address], 07/18/2024 11:15:02 07/17/20 24 07/18/2024 HBSAG SCREE N HBsAg screen NEGATI VE negati ve Not Available [facility] ([facility]) [address] [place], [address], 07/18/2024 11:15:03 07/17/20 24 07/18/2024 RPR, RFX QN RPR/C ONFIR M TP RPR NON REACTI VE nonrea ctive Not Available [facility] ([facility]) [address] [place], [address], 07/18/2024 11:15:03 07/17/20 24 07/18/2024 HIV AB/P2 4 AG WITH REFLE X HIV Ab/P24 Ag screen NON REACTI VE nonrea ctive HIV-1 /HIV- 2 antib odies and HIV-1 p24 antig en were NOT detec elver. There is no labor atory evide nce of HIV infec tion. HIV Negat jessica Not Available [facility] ([facility]) [address] [place], [address], 07/18/2024 11:15:04 07/17/20 24 07/20/2024 IGP,C TNGTV ,RFX APTIM A HPV ASCU diagnosis: CRISTIAN Streeter NEGAT JESSICA FOR INTRA EPITH ELIAL LESIO N OR MAYELA ANNA . Not Available [facility] ([facility]) [address] [facility], [place], [address], 07/21/2024 07:07:43 07/17/20 24 07/20/2024 IGP,C TNGTV ,RFX APTIM A HPV ASCU specimen adequacy: CRISTIAN Streeter Satis facto ry for evalu ation . No endoc ervic al compo nent is ident ified . Not Available [facility] ([facility]) [address] [facility], [place], [address], 07/21/2024 07:07:43 07/17/20 24 07/20/2024 IGP,C TNGTV ,RFX APTIM A HPV ASCU clinician provided ICD10: CRISTIAN Streeter Z01.4 19 Not Available [facility] ([facility]) [address] [place], [address], 07/21/2024 07:07:43 07/17/20 24 07/20/2024 IGP,C TNGTV ,RFX APTIM A HPV ASCU performed by: CRISTIAN barnett, Cytot dov streeter (ASCP ) Not Available [facility] ([facility]) [address] [place], [address], 07/21/2024 07:07:43 07/17/20 24 07/20/2024 IGP,C TNGTV ,RFX APTIM A HPV ASCU . . Not Available [facility] ([facility]) [address] [facility], [place], [address], 07/21/2024 07:07:43 07/17/20 24 07/20/2024 IGP,C TNGTV ,RFX APTIM A HPV ASCU note: COMMEN T The Pap smear is a scree toña test desig elvi to aid in the detec tion of chinedu ligna nt and malig nant condi tions of the uteri ne cervi x. It is not a diagn ostic proce dure and shoul d not be used as the sole means of detec ting cervi curtis cance r. Both false -posi tive and false -nega tive repor ts do occur . Not Available [facility] ([facility]) [address] [facility], [place], [address], 07/21/2024 07:07:43 07/17/20 24 07/20/2024 IGP,C TNGTV ,RFX APTIM A HPV ASCU test methodology: COMMEN T This liqui d based ThinP rep(R ) pap test was scree elvi with the use of an image guide d syste m. Not Available [facility] ([facility]) [address] [facility], [place], [address], 07/21/2024 07:07:43 07/17/20 24 07/20/2024 IGP,C TNGTV ,RFX APTIM A HPV ASCU . COMMEN T The HPV DNA refle x crite juan were not met with this speci men resul t there fore, no HPV testi ng was perfo rmed. Not Available [facility] ([facility]) [address] [facility], [place], [address], 07/21/2024 07:07:43 07/17/20 24 07/20/2024 IGP,C TNGTV ,RFX APTIM A HPV ASCU chlamydia, nuc. acid amp NEGATI VE negati ve Not Available [facility] ([facility]) [address] [facility], [place], [address], 07/21/2024 07:07:43 07/17/20 24 07/20/2024 IGP,C TNGTV ,RFX APTIM A HPV ASCU gonococcus, nuc. acid amp NEGATI VE negati ve Not Available [facility] ([facility]) [address] [facility], [place], [address], 07/21/2024 07:07:43 07/17/2007/20/2024 IGP,C TNGTV ,RFX APTIM A HPV ASCU trich vag by ANTONIO NEGATI VE negati ve Not Available [facility] ([facility]) [address] [place], [address], 07/21/2024 07:07:43 Result Notes None recorded. Problems Name Problem SNOMED Code Status Onset Date Resolution Date Notes Provider Name and Address Organization Details Recorded Time Tobacco user [id number] Active 2020 Liza Corea APN, FNP-C Attn: Luis banda,[address] [place], [address], [facility] 10:25:45 Obesity [id number] Active 2020 Liza Corea APN, FNP-C Attn: Luis banda,[address] [place], [address], [facility] 10:25:46 Venereal disease screening Completed 06/20/2021 Liza Corea APN, FNP-C Attn: Luis banda,[address] [place], [address], [facility] 10:25:18 Gynecologic examination Completed 06/20/2021 Liza Corea APN, FNP-C Attn: Luis banda,[address] [place], [address], [facility] 1 10:25:09 Bacterial vaginosis [id number] Completed 06/20/2021 Liza Corea APN, FNP-C Attn: Luis banda,[address] [facility], [place], [address], [facility] 1 10:25:15 Candidiasis of vagina [id number] Completed 06/20/2021 Liza Corea APN, FNP-C Attn: Debbynancy banda,[address] [facility], [place], [address], [facility] 1 10:25:12 Problem Notes None recorded. Procedures Surgical History Date Name Laterality Status Provider Name and Address Organization Details Recorded Time 07/17/20 24 Date of Last Pap Smear completed Teresita Parks RN [facility] 07/22/2024 10:56:35 10/25/20 21 loop electrosurgical excision procedure completed Tereista Parks RN [facility] 10/25/2021 17:51:51 08/16/20 21 Colposcopy completed CATHY Borja Attn: Accounting, [address] [place], [address], [facility] 08/16/2021 16:17:51 01/25/20 17 Colposcopy completed Olga Montague MD Attn: Accounting, [address] [place], [address], [facility] 01/24/2017 17:16:52 10/24/20 13 Tubal Ligation completed Teresita Parks RN [facility] 01/25/2015 12:26:31 Imaging Results None recorded. Procedure Notes None recorded. Medical Equipment None Reported. Allergies No known drug allergies Medications Name Sig Start Date Stop Date Status Note LastModified by Organization Details LastModified Time cyclobenza christian 10 mg tablet TAKE 1 TABLET BY MOUTH 3 TIMES A DAY NEEDED FOR MUSCLE SPASMS 07/13 completed Not Available Not Available Not Available buspirone 5 mg tablet Take by oral route for 30 days. 07/17 completed Not Available Not Available Not Available doxycyclin e hyclate 100 mg capsule TAKE 1 CAPSULE BY MOUTH TWICE A DAY FOR 7 DAYS 07/10 completed Not Available Not Available Not Available ibuprofen 800 mg tablet 01/11 completed Not Available Not Available Not Available fluconazol e 150 mg tablet Take 1 tablet by oral route for 1 day. 06/28 completed not taking Not Available Not Available Not Available hydrocodon e 5 mg-acetami nophen 325 mg tablet 02/13 completed Not Available Not Available Not Available fluconazol e 200 mg tablet TAKE 1 TABLET BY MOUTH EVERY 3RD DAY FOR 2 DOSES 07/13 completed Not Available Not Available Not Available prednisone 20 mg tablet TAKE 2 TABLETS BY MOUTH EVERY DAY FOR 5 DAYS 07/10 completed Not Available Not Available Not Available penicillin V potassium 500 mg tablet TAKE 1 TABLET BY MOUTH EVERY 6 HOURS FOR 10 DAYS 07/17 completed Not Available Not Available Not Available metronidaz ole 500 mg tablet TAKE 1 TABLET BY MOUTH TWICE A DAY DIRECTED FOR 7 DAYS completed Not Available Not Available Not Available acetaminop hen 300 mg-codeine 30 mg tablet 01/11 completed Not Available Not Available Not Available sulfametho xazole 800 mg-trimeth oprim 160 mg tablet TAKE 1 TABLET BY MOUTH EVERY 12 HOURS FOR 7 DAYS 07/11 completed Not Available Not Available Not Available tramadol 50 mg tablet TAKE 1 TABLET BY MOUTH THREE TIMES A DAY NEEDED FOR PAIN 07/17 completed Not Available Not Available Not Available triamcinol one acetonide 0.1 % topical cream APPLY THIN COAT TO AFFECTED AREA TWICE A DAY completed Not Available Not Available Not Available ketorolac 10 mg tablet 06/20 completed Not Available Not Available Not Available pantoprazo le 20 mg tablet,del ayed release TAKE 1 TABLET BY MOUTH EVERY MORNING 02/13 completed Not Available Not Available Not Available amoxicilli n 875 mg tablet TAKE 1 TABLET BY MOUTH EVERY 12 HOURS 07/10 completed Not Available Not Available Not Available neomycin-p olymyxin-d exameth 3.5 mg/mL-10,0 00 unit/mL-0. 1% eye drops PLACE 1 DROP INTO RIGHT EYE EVERY 6 HOURS FOR 7 DAYS. 02/13 completed Not Available Not Available Not Available nystatin 100,000 unit/gram topical cream APPLY TO AFFECTED AREA TWICE A DAY 07/13 completed Not Available Not Available Not Available ibuprofen 400 mg tablet TAKE 1 TABLET BY MOUTH THREE TIMES A DAY WITH MEALS FOR 30 DAYS 02/13 completed Not Available Not Available Not Available hydroxyzin e HCl 25 mg tablet TAKE 1 TABLET 3 TIMES A DAY BY ORAL ROUTE. 07/17 completed Not Available Not Available Not Available ibuprofen 600 mg tablet 06/20 completed Not Available Not Available Not Available methylpred nisolone 4 mg tablets in a dose pack TAKE 6 TABLETS ON DAY 1 DIRECTED ON PACKAGE AND DECREASE BY 1 TAB EACH DAY FOR A TOTAL OF 6 DAYS 02/13 completed Not Available Not Available Not Available sertraline 50 mg tablet TAKE 1 TABLET BY MOUTH EVERY DAY 07/13 completed Not Available Not Available Not Available naproxen 500 mg tablet 01/11 completed Not Available Not Available Not Available azithromyc in 500 mg tablet TAKE 2 TABLETS BY MOUTH FOR 1 DOSE. 02/13 completed Not Available Not Available Not Available cyclobenza christian 5 mg tablet 01/11 completed Not Available Not Available Not Available Vitals Date Recorded Body height Body mass index (BMI) Body weight Systolic blood pressure Diastolic blood pressure Provider Name and Address Organization Details Last Updated DateTime 04/26/2023 170.18 cm 36.2 kg/m2 586367.1 2 g 109 mm[Hg] 73 mm[Hg] Gloria Houser [facility] 3 16:28:46 Date Recorded Body height Body mass index (BMI) Body weight Systolic blood pressure Diastolic blood pressure Provider Name and Address Organization Details Last Updated DateTime 07/17/2023 170.18 cm 36.3 kg/m2 522526.7 2 g 113 mm[Hg] 70 mm[Hg] Gloria Houser [facility] 3 16:22:04 Date Recorded Body height Body mass index (BMI) Body weight Systolic blood pressure Diastolic blood pressure Provider Name and Address Organization Details Last Updated DateTime 08/09/2023 170.18 cm 36.2 kg/m2 848869.2 7 g 114 mm[Hg] 70 mm[Hg] Gloria Houser [facility] 3 16:13:48 Date Recorded Body height Body mass index (BMI) Body weight Systolic blood pressure Diastolic blood pressure Provider Name and Address Organization Details Last Updated DateTime 01/17/2024 170.18 cm 36.8 kg/m2 961205.4 9 g 144 mm[Hg] 90 mm[Hg] Gloria Houser [facility] 4 14:17:49 Date Recorded Body height Body mass index (BMI) Body weight Systolic blood pressure Diastolic blood pressure Provider Name and Address Organization Details Last Updated DateTime 07/17/2024 170.18 cm 37.3 kg/m2 621644.4 2 g 111 mm[Hg] 72 mm[Hg] Gloria Houser [facility] 4 15:36:41 Social History Question Answer Notes LastModified by Organizat ion Details LastModified Time Tobacco Smoking Status Current Every Day Smoker KULWINDER Conrad, [facility] 01/11/2017 16:28:10 Do You Have An Advance Directive? No Information not available 06/20/2021 What Is Your Level Of Alcohol Consumption? Occasional Information not available 06/20/2021 How Many Years Have You Consumed Alcohol? 12 Information not available 06/20/2021 Are You Blind Or Do You Have Difficulty Seeing? No Information not available 06/20/2021 What Is Your Level Of Caffeine Consumption? Moderate Soda Information not available 06/20/2021 In The 14 Days Before Symptom Onset, Have You Had Close Contact With A Laboratory-confi rmed COVID-19 While That Case Was Ill? No Information not available 06/20/2021 In The 14 Days Before Symptom Onset, Have You Had Close Contact With A Person Who Is Under Investigation For COVID-19 While That Person Was Ill? No Information not available 06/20/2021 Have You Been To An Area Known To Be High Risk For COVID-19? No Information not available 06/20/2021 Are You Currently Employed? No Information not available 06/20/2021 Are You Deaf Or Do You Have Serious Difficulty Hearing? No Information not available 06/20/2021 What Type Of Diet Are You Following? REGULAR Information not available 06/20/2021 Are There Any Guns Present In Your Home? No Information not available 06/20/2021 What Was The Date Of Your Most Recent Tobacco Screening? 07/17/2024 Information not available 07/17/2024 How Many Children Do You Have? 4 Information not available 06/20/2021 What Is Your Current Pack Years? 10-19packyear s Information not available 04/26/2023 Do You Use Protection During Sex? No Information not available 06/20/2021 What Is Your Relationship Status? Single Information not available 06/20/2021 Do You Use Your Seat Belt Or Car Seat Routinely? Yes Information not available 06/20/2021 Are You Sexually Active? Yes Information not available 06/20/2021 Do You Have Smoke And Carbon Monoxide Detectors In Your Home? Yes Information not available 06/20/2021 At What Age Did You Start Smoking Tobacco? 19 Information not available 07/17/2024 Are You Passively Exposed To Smoke? Yes Information not available 06/20/2021 How Much Tobacco Do You Smoke? 1 PPD Information not available 07/17/2024 Do You Feel Stressed (tense, Restless, Nervous, Or Anxious, Or Unable To Sleep At Night)? [id number] Information not available 06/20/2021 Do You Use Any Illicit Or Recreational Drugs? Yes Marijuana Information not available 07/17/2024 Do You Use Sunscreen Routinely? No Information not available 06/20/2021 Has Tobacco Cessation Counseling Been Provided? Yes Information not available 09/22/2021 On What Date Was Tobacco Cessation Counseling Provided? 07/17/2024 Information not available 07/17/2024 How Many Years Have You Smoked Tobacco? 14 Or 13 Years Information not available 04/26/2023 Do You Or Have You Ever Used Any Other Forms Of Tobacco Or Nicotine? No Information not available 06/20/2021 Sex: Female Functional Status Question Answer Note LastModified by Organizat ion Details LastModified Time Are you able to care for yourself? Yes Information not available 06/20/2021 What is your exercise level? Occasional trying Information not available 06/20/2021 Mental Status None recorded. Family History Relationship Description Onset Age of this Age Resolved Age Notes LastModified by Organization Details LastModified Time Father No current problems or disability [email or web address] Not available 06/20 10:26:34 Mother No current problems or disability [email or web address] Not available 06/20 10:26:34 Medical History Condition Response Other N High Blood Pressure N Breast Cancer N Kidney or Bladder Problems N Thyroid Problems N Lung Disease N Blood Clots N Depression N GI Problems N Acne N Breast Problem N Eating Disorder N Anemia N Anesthesia Complications N Headaches/Migraines N Anxiety Disorder N Diabetes N Ovarian Cancer N Muscle, Joint, or Bone Problems N Blood Transfusions N Seizures/Epilepsy N Polyps N Infertility N Acid Reflux (GERD) N Cancer N Abuse/Domestic Violence N Asthma N Endometriosis N High Cholesterol N Hepatitis N Liver Disease N Heart Disease N Pre-Eclampsia N Osteoporosis N Gynecological History Statement/Question Response Abnormal Pap Y Date of LMP 01/17/2022 Sexually Active? Y Menses Monthly Y STIs/STDs Yes Date of Last Pap Smear 07/17/2024 Current Control Method Tubal Ligat ion LMP Approximate Obstetrics History GPAL:G 4 P 4 0 0 4 Type Value Full Term 4 Living 4 Total 4 Immunizations Vaccine Type Date Status Note Provider Nam e and Address Organization Details Recorded Time Tdap 09/27/2021 ifeoma Houser [place], [place] - [facility] 01/17/2024 14:10:04 Past Encounters Encounter ID Performer Location Encounter Start Date Encounter Closed Date Diagnosis/Indication Diagnosis SNOMED-CT Code Diagnosis ICD10 Code Diagnosis Note [id number] MD Dell Sandoval ([facility]) [address] [facility] [place] [address] 12/07/2015 16:06:17 12/08/2015 11:15:13 Gynecologic examination 71271633 Z01.419 [id number] MD Dell Sandoval ([facility]) [address] [place] [address] 05/09/2016 16:14:42 05/10/2016 02:14:08 Venereal disease screening 007899276 Z11.3 [id number] MD Dell Sandoval ([place] [address]) [address] [facility] [place] [address] 05/15/2016 14:07:42 05/15/2016 19:33:03 Bacterial vaginosis 166780615 N76.0 A59.9 Candidiasis of vagina 72 226322 B37.3 [id number] MD Dell Sandoval ([place] [address]) [address] [facility] [place] [address] 06/12/2016 15:43:59 06/12/2016 18:50:05 Venereal disease screening 984205289 Z11.3 [id number] MD Dell Sandoval ([place] [address]) [address] [facility] [place] [address] 11/03/2016 10:45:07 11/03/2016 11:24:54 Venereal disease screening 020279001 Z11.3 [id number] MD Dell Sandoval ([place] [address]) [address] [facility] [place] [address] 01/05/2017 15:11:48 01/05/2017 16:31:26 Gynecologic examination 01098490 Z01.411 High risk sexual behavior 559145612 Z72.51 [id number] MD Dell Sandoval ([place] [address]) [address] [facility] [place] [address] 01/11/2017 16:17:41 01/11/2017 16:52:17 Specimen unsatisfactory for evaluation 510364959 R85.066 [id number] MD Dell Sandoval ([place] [address]) [address] [facility] [place] [address] 01/24/2017 15:56:37 01/24/2017 17:20:41 Low grade squamous intraepithelial lesion on cervical Papanicolaou smear 4872073081 9105 R87.449 [id number] MD Dell Sandoval ([place] [address]) [address] [facility] [place] [address] 02/01/2017 15:51:40 02/01/2017 18:17:17 Cervical intraepithelial neoplasia grade 1 254783587 N87.0 [id number] [facility] [address] [facility] [place] [address] 11/05/2017 09:37:50 11/05/2017 10:54:21 Venereal disease screening 923996094 Z11.3 History of abnormal cervical Papanicolaou smear 918600583 Z87.42 [id number] MD Dell Sandoval ([facility]) [address] [facility] [place] [address] 11/08/2017 15:10:04 11/08/2017 16:12:27 Herpes simplex type 2 infection 176488438 B00.9 - No acute interventi on is indicated at this time. Will treat the patient in the event of an outbreak. [id number] MD Dell Sandoval [address] [place] [address] [place] [address] 08/07/2018 11:55:07 08/08/2018 05:41:13 Vaginal discharge 065223502 N89.8 Venereal d isease screening 806171217 Z11.3 - STD testing was done as per patient request. Will re-evaluat e with results. [id number] MD Dell Sandoval 14 OB [address] [facility] [place] [address] 08/20/2018 15:06:27 08/20/2018 15:33:51 Trichomonal vaginitis 642803721 A59.00 Rx for Flagyl was sent to the pharmacy. Patient was instructed to abstain from sexual intercours e until her partner was treated. Genital he rpes simplex 15498631 A60.9 No interventi on is indicated as the patient is asymptomat ic. [id number] MD Dell Sandoval 14 OB [address] [facility] [place] [address] 10/17/2018 11:57:35 10/17/2018 13:54:05 Venereal disease screening 402529156 Z11.3 - STD testing was done as per patient request. Will re-evaluat e with results. [id number] Betzy Hayes [facility] Dell 14 OB [address] [facility] [place] [address] 07/24/2019 15:55:00 07/25/2019 08:29:14 Gynecologic examination 03016275 Z01.419 1. Counseled regarding prevention of STD's , condom use and prevention . 2. Counseled regarding contracept jessica options, risk factors and side effects. 3. Advised avoidance of tobacco, alcohol, and drugs . 4. Counseled regarding folic acid supplement ation, calcium needs and prevention of osteoporos is . 5. BSE reviewed and recommende d. 6. Follow up in one year or sooner if needed. Venereal d isease screening 664872907 Z11.3 1. STD testing done per pt request 2. Educated pt on STD prevention , Condom use 3. Pt verbalized understand ing 4. Will follow up pending lab results, as needed or at next annual [id number] [facility] Dell 14 OB [address] [facility] [place] [address] 01/28/2020 11:08:16 01/29/2020 10:14:30 History of abnormal cervical Papanicolaou smear 744973174 Z87.42 1. Counseled regarding prevention of STD's , condom use and prevention . 2. Counseled regarding contracept jesisca options, risk factors and side effects. 3. Advised avoidance of tobacco, alcohol, and drugs . 4. Counseled regarding folic acid supplement ation, calcium needs and prevention of osteoporos is . 5. BSE reviewed and recommende d. 6. Follow up in one year or sooner if needed. High risk sexual behavior 713646200 Z72.51 1. STD testing done per pt request 2. Educated pt on STD prevention , Condom use 3. Pt verbalized understand ing 4. Will follow up pending lab results, as needed or at next annual [id number] Betzy Hayes [employer]- Dell 14 OB [address] [facility] [place] [address] 05/05/2020 12:01:20 05/06/2020 11:49:30 Venereal disease screening 161358324 Z11.3 1. STD testing done per pt request 2. Educated pt on STD prevention , Condom use 3. Pt verbalized understand ing 4. Will follow up pending lab results, as needed or at next annual [id number] CATHY Borja 14 OB [address] [facility] [place] [address] 06/10/2020 14:08:02 06/11/2020 11:38:13 History of sexually transmitted disease 135885167 Z86.19 1. Reviewed transmissi on and prevention of STD's including condom use2. Reviewed medication use and instructio n on taking all meds to rid infection3 . Pt informed to have partner(s) informed and treated and avoid intercours e until both are treated for 1-2 weeks4. Will return for serg in 6-8 weeks. [id number] Betzy Hayes [facility] [address] Uriostegui [address] [place], [place] [address] [address] 08/17/2020 10:51:22 08/18/2020 11:31:34 Gynecologic examination 10444720 Z01.419 1. Counseled regarding prevention of STD's , condom use and prevention . 2. Counseled regarding contracept jessica options, risk factors and side effects. 3. Advised avoidance of tobacco, alcohol, and drugs . 4. Counseled regarding folic acid supplement ation, calcium needs and prevention of osteoporos is . 5. BSE reviewed and recommende d. 6. Follow up in one year or sooner if needed. Venereal d isease screening 475812912 Z11.3 1. STD testing done per pt request 2. Educated pt on STD prevention , Condom use 3. Pt verbalized understand ing 4. Will follow up pending lab results, as needed or at next annual Irregular periods 249063 07 N92.6 [id number] Betzy Hayes [facility] [address] Uriostegui [address] [place], [place] [address] [address] 08/31/2020 10:12:02 09/01/2020 12:15:29 Chlamydial infection 496425067 A74.9 1. Reviewed transmissi on and prevention of STD's including condom use2. Reviewed medication use and instructio n on taking all meds to rid infection3 . Pt informed to have partner(s) informed and treated and avoid intercours e until both are treated for 1-2 weeks4. Will return for serg in 6-8 weeks. History of abnormal cervical Papanicolaou smear 252198190 Z87.42 Will schedule colpo following chlamydia treatment. Pt verbalized understand ing. [id number] MD Vasyl Mejia (Adult Med) [address] [place] [address] 06/20/2021 09:56:45 06/22/2021 07:30:01 Adult health examination 472633875 Z00.01 Encouraged routine [employer], vision, dental exams, well balanced diet. Tobacco user 682486087 Z 72.0 Smoking cessation encouraged . Obesity 834724178 E66.9 advised low fat, low cholestero l diet, regular exercise and weight reduction. History of palpitations 210903821 Z86.79 pt has had with anxiety in past, reports doing ok now,dwp further testing if symptoms return or go to ER if worsening [id number] Betzy Hayes, [facility] OB [address] [facility] [address] [place] [address] 06/28/2021 09:48:31 06/29/2021 08:03:45 Gynecologic examination 79420586 Z01.419 1. Counseled regarding prevention of STD's , condom use and prevention . 2. Counseled regarding contracept jessica options, risk factors and side effects. 3. Advised avoidance of tobacco, alcohol, and drugs . 4. Counseled regarding folic acid supplement ation, calcium needs and prevention of osteoporos is . 5. BSE reviewed and recommende d. 6. Follow up in one year or sooner if needed. Venereal d isease screening 184487915 Z11.3 1. STD testing done per pt request 2. Educated pt on STD prevention , Condom use 3. Pt verbalized understand ing 4. Will follow up pending lab results, as needed or at next annual [id number] Valentina Jorge 14 OB [address] [facility] [address] [place], [place] [address] [address] 08/16/2021 15:52:33 08/17/2021 12:15:07 Abnormal cervical Papanicolaou smear 864360410 R87.619 Colpo done- samples taken at 12, 3, 6 and 9 Oclock along with ECC. Pt informed to avoid intercours e and anything in vagina for 10-14 days. Advised normal discharge would appear bloody or dark from silver nitrate with no odor. Pt to call if bleeding worsens after getting better, odorous discharge or colored discharge. Pt verbalized understand ing. Will follow up pending results. High risk sexual behavior 970164602 Z72.51 1. STD testing done per pt request 2. Educated pt on STD prevention , Condom use 3. Pt verbalized understand ing 4. Will follow up pending lab results, as needed or at next annual [id number] MD Dell Rodriguez 14 OB [address] [facility] [place] [address] 09/22/2021 10:50:46 09/22/2021 22:28:59 High grade squamous intraepithelial lesion on cervical Papanicolaou smear 3295580834 9107 R87.213 [id number] Gloria Houser, [facility] Dell 14 OB [address] [facility] [place] [address] 10/11/2021 09:45:25 10/12/2021 08:21:56 History of sexually transmitted disease 696523220 Z86.19 [id number] MD Dell Rodriguez 14 OB [address] [facility] [place] [address] 11/08/2021 10:59:51 11/09/2021 07:33:38 Postoperative visit 533991831 Z09 [id number] MD Dell Rodriguez 14 OB [address] [facility] [place] [address] 01/03/2022 15:03:23 01/04/2022 06:45:13 High risk sexual behavior 990668929 Z72.51 [id number] ZAHEER Kinsey 14 IM [address] [facility] [place] [address] 02/13/2022 14:26:06 02/15/2022 14:32:55 Venereal disease screening 890036632 Z11.3 -We will call you with results-Sa fe sex discussed- to f/u with OBGYN as needed [id number] MD Dell Rodriguez 14 OB [address] [facility] [place] [address] 03/09/2022 10:13:58 03/10/2022 07:02:11 Abnormal cervical Papanicolaou smear 570092634 R87.693 [id number] MD Dell Rodriguez 14 OB [address] [facility] [place] [address] 07/10/2022 14:42:38 07/11/2022 11:17:57 Obesity 149738988 E66.9 Gynecologi c examination 09804421 Z01.419 High risk sexual behavior 781911210 Z72.51 [id number] MD Dell Rodriguez 14 OB [address] [facility] [place] [address] 04/26/2023 16:05:09 05/01/2023 15:24:01 High risk sexual behavior 925274904 Z72.51 Smoker 04654588 F17.200 Acute urin asya tract infection 343530774 N39.0 [id number] MD Dell Rodriguez 14 OB [address] [facility] [place] [address] 07/17/2023 16:07:52 07/18/2023 09:20:50 Obesity 031242734 E66.9 Gynecologi c examination 54530877 Z01.476 [id number] Teresita Parks RN Dell [address] [place] [address] [place] [address] 08/09/2023 16:05:20 08/13/2023 10:41:26 Vaginal discharge 756245330 N89.8 High risk sexual behavior 262673789 Z72.51 [id number] MD Dell Rodriguez [address] [place] [address] [place] [address] 01/17/2024 13:55:06 01/18/2024 12:08:52 High risk sexual behavior 831814346 Z72.51 [id number] MD Dell Rodriguez [address] [place] [address] [place] [address] 07/17/2024 15:25:12 07/18/2024 09:09:43 Smoker 42589367 F17.200 Gynecologi c examination 26482601 Z01.419 High risk sexual behavior 169895378 Z72.51 Health Concerns Section Related Observation LastModified by Organization Detai ls LastModified Time None Recorded Concern Status LastModified by Organization Details LastModified Time None Recorded Advance Directives Directive N: Payers Encounter Date Sequence Insurance Name Policy Number Policy Elder Covered Member ID Elder Member ID Guarantor Name 04/26/2023 1 [facility] (MEDICAID HMO) [id number] Caroline Sanders [id number] Caroline Sanders 07/17/2023 1 [facility] (MEDICAID HMO) [id number] Caroline Sanders [id number] Caroline Sanders 08/09/2023 1 [facility] (MEDICAID HMO) [id number] Caroline Sanders [id number] Caroline Sanders 01/17/2024 1 [facility] (MEDICAID HMO) [id number] Caroline Sanders [id number] Caroline Sanders 07/17/2024 1 [facility] (MEDICAID HMO) [id number] 0003 Caroline Sanders [id number] Caroline Sanders Notes Date Note Type Note Provider Name and Address Organization Details Recorded Time 04/26/2023 text/html discussed concer ns for STDs based on exposure (discharge/dyspare unia) also discussed UTI symptoms has BTL Flora Cruz MD Attn: [address] [place], [address], [facility] 04/26/2023 16:52:29 07/17/2023 text/html Annual GYNReport ed bypatient.Menstrua l cycle:Normal menses Urinary symptoms:No hematuria; No incontinence Vulva:No genital lesion Vagina:Normal vaginal discharge Breast:No breast pain; No breast lump; No nipple discharge Current Contraception:Tuba l ligation Sexual complaints:No sexual complaints; No pain during intercourse; Normal libido Menopausal Symptoms:No menopausal symptoms; Normal vaginal lubrication Psychological symptoms:No depression; No anxiety; No PMDD Flora Cruz MD Attn: [address] [place], [address], [facility] 07/17/2023 17:16:56 08/09/2023 text/html I still dont trust my current partner Did std testing in April, would like it repeated symptoms seem more like BV Teresita Parks RN [facility], [place] - [facility] 08/09/2023 16:37:24 01/17/2024 text/html discussed STD testing, its timing, etc Flora Cruz MD Attn: [address] [place], [address], [facility] - [facility] 01/17/2024 14:43:49 07/17/2024 text/html Annual GYNReport ed bypatient.Menstrua l cycle:Normal menses Urinary symptoms:No hematuria; No incontinence Vulva:No genital lesion Vagina:Normal vaginal discharge Breast:No breast pain; No breast lump; No nipple discharge Current Contraception:Tuba l ligation Sexual complaints:No sexual complaints; No pain during intercourse; Normal libido Menopausal Symptoms:No menopausal symptoms; Normal vaginal lubrication Psychological symptoms:No depression; No anxiety; No PMDD would like full panel STD testing possible tubal reversal/IVF with new partner Flora Cruz MD Attn: [address] [place], [address], [facility] - [facility] 07/17/2024 15:56:19 OBGyn Episode No OBEpisode recorded.
--- OUTSIDE RECORDS SUMMARY | 2025-01-28 13:01 | XMS_ITS | Clinical Summary ---
Author Organization [facility] Address [address] [place] [address] Phone Care Team Providers Care Client Relationship Manager Name Role Phone Yandy Lawrence MD Primary Care Provider [phone]- [phone] Allergies No known active allergies Medications nicotine (NICODERM CQ) 21 MG/24HR PATCH 24 HRIndications:E ncounter for smoking cessation counseling 1 Patch by Transdermal route every 24 hours. 30 Patch Active Active Problems No known active problems Immunizations Immunization Administration Dates Next Due MMR Vaccine 07/07/1996,01/05/1992 TDAP Vaccine 09/27/2021 Family History Medical History Relation Name Comments Thyroid Disease Father Cancer Sister Relation Name Status Comments Father Sister Social History Tobacco Use Types Packs/Day Years Used Date Smoking Tobacco: Every Day Cigarettes Smokeless Tobacco: Never Tobacco Cessation:Ready to Q uit: No; Counseling Given: No Alcohol Use Standard Drinks/Week Comments Not Currently 1 (1 standard drink = 0.6 oz pur e alcohol) Education Answer Date Recorded What is the highest level of school you have completed or the highest degree you have received? GED or equivalent Comments No Sex and Gender Information Value Date Recorded Sex Assigned at Female 07/03/2023 8:49 AM CDT Legal Sex Female 11:36 PM CDT Gender Identity Female 07/03/2023 8:49 AM CDT Sexual Orientation Not on file Last Filed Vital Signs Vital Sign Reading Time Taken Comments Blood Pressure 114/68 07/18/2024 1:54 PM CDT Pulse 71 07/18/2024 1:54 PM CDT Temperature 36.5 C (97.7 F) 07/18/2024 1:54 PM CDT Respiratory Rate 20 07/18/2024 1:54 PM CDT Oxygen Saturation 98% 07/18/2024 1:54 PM CDT Inhaled Oxygen Concentration - - Weight 107.6 kg (237 lb 3.2 oz) 07/18/2024 1:54 PM CDT Height 171.5 cm (5' 7.5 ) 07/18/2024 1:54 PM CDT Body Mass Index 36.6 07/18/2024 1:54 PM CDT Plan of Treatment Health Maintenance Due Date Last Done Comments Pneumococcal Immunization Combined (1 of 2 - PCV) 2009 Pap Smear 2011 Cervical Cancer Screening (CCS) 2020 HPV/Cotest 2020 Influenza Immunization (#1) 2024 SARS-COV-2 Immunization ( season) 2024 Td Immunization Every 10 Yea rs (Adults With 1 Tdap) 09/27/2031 09/27/2021 Respiratory Syncytial Virus (RSV) Immunization (Adult) (1 - 1-dose 75+ series) 2065 DTaP/Tdap/Td Immunization Discontinued 09/27/2021 Hepatitis C Virus (HCV) Screening Completed 023 Hepatitis B Immunization Discontinued Meningococcal Immunization (ACWY) Aged Out No longer eligible based on patient's age to complete this topic Rotavirus Immunization Aged Out No lo nger eligible based on patient's age to complete this topic Procedures Procedure Name Priority Date/Time Associated Diagnosis Comments HEPATITIS C ANTIBODY Routine 07/05/2023 12:01 PM CDT Adult general medical exam from Last 3 Months or Most Recently Relevant to Health Maintenance Results * HEPATITIS C ANTIBODY (07/05/2023 12:01 PM CDT) hepatitis C antibody 0.09 <1 S/[facility] ARCH [id number] B 07/05/2023 9:27 PM CDT [facility] Comment: Signal/Cutoff ratio < 0.79 is Nondetected Signal/Cutoff ratio 0.80-0.99 is Grayzone Signal/Cutoff ratio > 0.99 is Detected Supplemental assays are recommended if signal/cutoff ratio is >/=1.00. Signal/cutoff ratio result >/= 5.00 is 97% predictive of positivity for recombinant immunoblot assay (RIBA) and will be reported to the [place] Department of Public Health as required. Blood Venipuncture / Unknown 07/05/2023 12:01 PM CDT 07/05/2023 12:23 PM CDT us Janet Camarillo MD CHEMISTRY ORDERABLES Final R esult [facility] [address] [place] [address], from Last 3 Months or Most Recently Relevant to Health Maintenance Insurance MEDICAID [place] Care Teams Client Relationship Manager Relationship Specialty Start Date End Date Yandy Lawrnece MD [address] [place] [address] PCP - General Family Medicine 07/18/24
== END 2025-01-28 11:51 | disposition home or self-care (01) ==
PROVIDERS: Emergency Provider Nurse Practitioner Family; PCP Family Medicine
DX: K08.89 Other specified disorders of teeth and supporting structures (principal); F17.210 Nicotine dependence, cigarettes, uncomplicated
CPT/HCPCS: 99213; G0463

== ENCOUNTER 2025-09-03 11:45 | Emergency (ER) | payer SELFPAY ==
--- NOTE | 2025-09-03 11:46 | ECG_ITS ---
Test Date: 2025-09-03 12:05:18 Measurements Intervals [place] Rate: 75 P: 1 UT: 145 QRS: 51 QRSD: 86 T: 4 QT: 384 QTc: 430 Interpretive Statements SINUS RHYTHM BORDERLINE ST-T WAVE ABNORMALITY- ANT/INF LEADS BASELINE ARTIFACT- I, II, III, AVR, AVL, AVF, V1 BORDERLINE ECG No previous ECG available for comparison Electronically Signed On 09-03-2025 12:13:48 CDT by Sean Velazquez D.O.
[2025-09-03 11:58] VITALS: BP 122/81; PULSE 75; RESP 16; TEMP 36.4; O2SAT 100
--- OUTSIDE RECORDS SUMMARY | 2025-09-03 13:27 | XMS_ITS | Encounter Summary ---
Author Organization [facility] Address [address] [place] [address] Phone Care Team Providers Care Concrete Mixer Operator Helper Name Role Phone Yandy Lawrence MD Primary Care Provider +1- [phone] Reason for Visit * Reason Comments Palpitations Encounter Details Date Type Department Care Team (Late st Contact Info) Description 09/03/2025 1:27 PM CDT - Present Emergency [facility] Emergency [address] [place] [address] Maximino Henryony, DO [address] [place] [address] Social History Tobacco Use Types Packs/Day Years Used Date Smoking Tobacco: Every Day Cigarettes Smokeless Tobacco: Never Alcohol Use Standard Drinks/Week [...] AM CDT Sexual Orientation Not on file documented as of this encounter Last Filed Vital Signs Vital Sign Reading Time Taken Comments Blood Pressure 126/68 09/03/2025 1:32 PM CDT Pulse 74 09/03/2025 1:32 PM CDT Temperature 35.6 C (96.1 F) 09/03/2025 1:32 PM CDT Respiratory Rate 17 09/03/2025 1:32 PM CDT Oxygen Saturation 100% 09/03/2025 1:35 PM CDT Inhaled Oxygen Concentration - - Weight 108.9 kg (240 lb) 09/03/2025 1:32 PM CDT Height 171.5 cm (5' 7.5) 09/03/2025 1:32 PM CDT Body Mass Index 37.03 09/03/2025 1:32 PM CDT documented in this encounter ED Notes * Alma Delia Bello RN - 09/03/2025 1:36 PM CDT Patient arrived ambulatory to triage with report of palpitations with onset 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 She denies current pain. documented in this encounter Plan of Treatment Scheduled Orders Name Type Priority Associated Diagnoses Orde r Schedule EKG 12 LEAD ECG STAT One Time for 1 Occurrences starting 09/03/2025 until 09/03/2025 CMP (Comprehensive Metabolic Panel) Lab STAT One Time for 1 Occurrences starting 09/03/2025 until 09/03/2025 Complete Blood Count (CBC) WITH Diff Lab STAT One Time for 1 Occurrences starting 09/03/2025 until 09/03/2025 TROPONIN I, HIGH SENSITIVITY (HSTRP) Lab Routine One Time for 1 Occurrences starting 09/03/2025 until 09/03/2025 Thyroid Stimulating Hormone (TSH) [id number] Lab STAT One Time f or 1 Occurrences starting 09/03/2025 until 09/03/2025 CBC with Auto Differential Lab Only STAT Once for 1 Occur rences starting 09/03/2025 until 09/03/2025 documented as of this encounter Visit Diagnoses Not on filedocumented in this encounter Care Teams Concrete Mixer Operator Helper Relationship Specialty Start Date End Date Yandy Lawrence MD [address] [place] [address] PCP - General Family Medicine 07/18/24 documented as of this encounter
--- OUTSIDE RECORDS SUMMARY | 2025-09-03 13:27 | XMS_ITS | Encounter Summary ---
Author Organization [facility] Address [address] [place] [address] Phone Care Team Providers Care Correctional Casework Specialist Name Role Phone Provider, None Primary Care Provider Unavailabl e Reason for Visit * Reason Comments Palpitations Encounter Details Date Type Department Care Team ([facility] st Contact Info) Description 09/03/2025 1:27 PM CDT - 09/03/2025 4:54 PM CDT Emergency [facility] Emergency [address] [place] [address] Maximino Henryony, DO [address] [place] [address] Palpitations Discharge Disposition: Discharged to home or Selfcare Social History Tobacco Use Types Packs/Day Years [...] Sign Reading Time Taken Comments Blood Pressure 107/63 09/03/2025 4:50 PM CDT Pulse 69 09/03/2025 4:50 PM CDT Temperature 35.6 C (96.1 F) 09/03/2025 1:32 PM CDT Respiratory Rate 16 09/03/2025 4:50 PM CDT Oxygen Saturation 100% 09/03/2025 4:50 PM CDT Inhaled Oxygen Concentration - - Weight 108.9 kg (240 lb) 09/03/2025 1:32 PM CDT Height 171.5 cm (5' 7.5) 09/03/2025 1:32 PM CDT Body Mass Index 37.03 09/03/2025 1:32 PM CDT documented in this encounter Discharge Instructions * Discharge Instructions* Maximino Henry DO - 09/03/2025 2:38 PM CDT Did you know? Antibiotics do not treat viruses, there are some antivirals that exist but they do not treat most causes of the common cold Ogom-gty-cfoybti vitamin-C and zinc has been proven to help in recovery for viral illnesses. *Exercise is 1.5 more effective than any antidepressives for depression/sadness* Follow up with your doctor within 24hrs Take Medications as prescribed. The radiology reads (xray's, CT scans, ultrasounds etc. ) during the nights or weekends are preliminary reads and subject to change. Please Access your My Chart and confirm your diagnosis. Please call the ED if you have any questions or concerns, especially in the case that the imaging read has changed significantly. Return to ER immediately at anytime if symptoms worsen/ persists, chest pain, shortness of breath, lightheadedness, loss of consciousness, numbness/weakness/tingling in your arms or legs. If patient is using abdominal or rib muscles to breathe or breathing faster than normal. Return if fevers greater than 101, continuous vomiting, inability to drink fluids or tolerate solids by mouth, dehydration, lethargy, if patient not acting normally or any other concerns you may have. Please followup with your primary care doctor or the physician you have been given here in the emergency department prior to any travel. GO CARDINALS!!! GO BLUES !!! GO [employer]!!! GO [employer]in[employer]!!! documented in this encounter Medications at Time of Discharge nicotine (NICODERM CQ) 21 MG/24HR PATCH 24 HRIndications:En counter for smoking cessation counseling 1 Patch by Transdermal route every 24 hours. 30 Patch 07/18/2024 documented as of this encounter ED Notes * Angela Valero RN - 09/03/2025 4:54 PM CDT Patient discharged. Discharge instructions and patient educational material reviewed with patient; questions and concerns addressed; patient verbalizes understanding, using teach back. Patient was given zero prescriptions. Patient discharged per ambulatory mode with self as responsible libertarian. SL D/C'ed with Vince cath intact. * Angela Valero RN - 09/03/2025 4:28 PM CDT Patient aware we are awaiting results than she will be up for re evaluation. Patient understands this. Patient denies any other needs at this time. Call light is within reach. * Clari Meléndez RN - 09/03/2025 4:06 PM CDT Pt's repeat troponin obtained and given an update on results so far. Pt verbalizes understanding and denies needing anything else at this time. Call light remains within reach. * Angela Valero RN - 09/03/2025 2:26 PM CDT Patient asked if she could have ice chips. Patient given ice chips. Patient denies needing anythingelse at this time. Call light within reach. Patient aware of plan of care. * Maximino Henry DO - 09/03/2025 2:19 PM CDTAssociated Order(s): EKG 12 LEAD Chief Complaint Patient presents with Palpitations 34-year-old female complains of palpitations, intermittent, lasting 20 to 30 seconds at a time, started few days ago, no history of this in the past, denies any numbness or weakness or tingling or recent illness or sick contacts recent travel/vomiting/diarrhea/fevers. She denies any cardiac historyin the past, does not take any medications. Review of systems negative otherwise. Current Medications[1] Allergies[2] No past medical history on file. Past Surgical History[3] Social History Socioeconomic History Marital status: Spouse name: Not on file Number of children: Not on file Years of education: Not on file Highest education level: GED or equivalent Occupational History Not on file Tobacco Use Smoking status: Every Day Current packs/day: 0.50 Types: Cigarettes Smokeless tobacco: Never Vaping Use Vaping status: Never Used Substance and Sexual Activity Alcohol use: Not Currently Alcohol/week: 0.6 oz Types: 1 Shots of liquor per week Drug use: Yes Types: Marijuana Sexual activity: Not on file Other Topics Concern Not on file Social History Narrative Not on file Social Drivers of Health Financial Resource Needs: Not on file Food Insecurity Needs: Not on file Transportation Needs: Not on file Physical Activity: Not on file Stress: Not on file Social Integration: Not on file Personal Safety: Low Risk (09/03/2025) Personal Safety Feels Unsafe at Home or Work/School: no Feels Threatened by Someone: no Does Anyone Try to Keep You From Having Contact with Others or Doing Things Outside Your Home?: no Physical Signs of Abuse Present: no Housing Stability: Not on file BP 110/64 Pulse 64 Temp (!) 96.1 ??F (35.6 ??C) (Tympanic) Resp 21 Ht 5' 7.5 (1.715 m) Wt 240 lb (108.9 kg) LMP (LMP Unknown) SpO2 100% BMI 37.03 kg/m?? Review of Systems Physical Exam Vitals and nursing note reviewed. Constitutional: General: She is not in acute distress. Appearance: She is well-developed. She is not diaphoretic. Comments: Age appropriate, sig other at bedside, over nourished, no acute distress, cooperative HENT: Head: Normocephalic and atraumatic. Right Ear: External ear normal. Left Ear: External ear normal. Nose: Nose normal. Mouth/Throat: Mouth: Mucous membranes are moist. Pharynx: No oropharyngeal exudate. Eyes: General: Right eye: No discharge. Left eye: No discharge. Conjunctiva/sclera: Conjunctivae normal. Pupils: Pupils are equal, round, and reactive to light. Neck: Thyroid: No thyromegaly. Vascular: No JVD. Trachea: No tracheal deviation. Cardiovascular: Rate and Rhythm: Normal rate and regular rhythm. Heart sounds: Normal heart sounds. No murmur heard. Pulmonary: Effort: Pulmonary effort is normal. No respiratory distress. Breath sounds: Normal breath sounds. No wheezing or rales. Chest: Chest wall: No tenderness. Abdominal: General: Bowel sounds are normal. There is no distension. Palpations: Abdomen is soft. There is no mass. Tenderness: There is no abdominal tenderness. There is no guarding or rebound. Musculoskeletal: General: No tenderness. Normal range of motion. Cervical back: Normal range of motion and neck supple. Lymphadenopathy: Cervical: No cervical adenopathy. Skin: General: Skin is warm and dry. Capillary Refill: Capillary refill takes less than 2 seconds. Coloration: Skin is not pale. Findings: No erythema or rash. Neurological: Mental Status: She is alert and oriented to person, place, and time. Cranial Nerves: No cranial nerve deficit. Motor: No abnormal muscle tone. Coordination: Coordination normal. Deep Tendon Reflexes: Reflexes are normal and symmetric. Psychiatric: Behavior: Behavior normal. Thought Content: Thought content normal. EKG 12 LEAD Performed by: Maximino Henry DO Authorized by: Maximino Henry DO EKG Interpretation 1332 Interpreted by nc Rhythm: sinus Rate: normal [place]: normal Ectopy: none Conduction: normal Q Waves: none Clinical Impression: Sinus rhythm Recent Results (from the past 24 hours) CMP (Comprehensive Metabolic Panel) Collection Time: 09/03/25 1:38 PM Result Value Ref Range SODIUM 137 136 - 145 mmol/L POTASSIUM 3.9 3.5 - 5.1 mmol/L CHLORIDE 103 98 - 107 mmol/L CO2, VENOUS 23 22 - 30 mmol/L ANION GAP 14.9 <18.0 mmol/L GLUCOSE 79 70 - 99 mg/dL BUN 12 5 - 18 mg/dL CREATININE, BLOOD 0.88 0.60 - 1.00 mg/dL BUN/CREATININE RATIO 14 12 - 20 ratio TOTAL PROTEIN 8.2 (H) 6.0 - 8.0 g/dL ALBUMIN 5.0 3.5 - 5.0 g/dL A/G RATIO 1.6 1.0 - 2.2 CALCIUM 9.6 8.7 - 10.5 mg/dL T BILI 0.4 0.2 - 1.2 mg/dL SGOT (AST) 42 <43 U/L SGPT (ALT) 48 <56 U/L ALKALINE PHOSPHATASE 68 40 - 150 U/L GFR, ESTIMATED >60 >=60 GFR, EST. >60 >=60 GFR, EST. NONAFRICAN >60 >=60 TROPONIN I, HIGH SENSITIVITY (HSTRP) Collection Time: 09/03/25 1:38 PM Result Value Ref Range TROPONIN I, HIGH SENSITIVITY- MCDOWELL <2.7 <=14.0 ng/L Thyroid Stimulating Hormone (TSH) [id number] Collection Time: 09/03/25 1:38 PM Result Value Ref Range TSH 0.861 0.300 - 5.000 mIU/L CBC with Auto Differential Collection Time: 09/03/25 1:38 PM Result Value Ref Range WBC 8.84 4.00 - 12.00 10(3)/mcL RBC 4.37 3.80 - 5.30 10(6)/mcL HEMOGLOBIN (HGB) 13.2 12.0 - 15.8 g/dL HEMATOCRIT (HCT) 40.1 36.0 - 47.0 % MCV 91.8 82.0 - 96.0 fL MCH 30.2 26.0 - 34.0 pg MCHC 32.9 31.0 - 36.0 g/dL PLATELET COUNT 270 140 - 440 10(3)/mcL RDW 13.3 11.8 - 15.5 % MPV 11.8 9.7 - 12.4 fL NEUTROPHILS 66.0 47.0 - 73.0 % LYMPHOCYTES 24.7 18.0 - 42.0 % MONOCYTES 7.5 4.0 - 12.0 % EOSINOPHILS 1.0 0.0 - 5.0 % BASOPHILS 0.6 0.0 - 1.0 % IMMATURE GRANULOCYTE 0.2 0.0 - 0.4 % ABSOLUTE NEUTROPHILS 5.84 1.60 - 7.70 10(3)/mcL ABSOLUTE LYMPHOCYTES 2.18 1.30 - 3.20 10(3)/mcL ABSOLUTE MONOCYTES 0.66 0.20 - 1.00 10(3)/mcL ABSOLUTE EOSINOPHIL 0.09 0.00 - 0.40 10(3)/mcL ABSOLUTE BASOPHILS 0.05 0.00 - 0.10 10(3)/mcL ABSOLUTE IMMATURE GRANULOCYTE 0.02 0.00 - 0.03 10 (3) mcL. NRBC PER 100 WBC 0 Imaging Results XR CHEST SINGLE VIEW PORTABLE (Final result) Result time 09/03/25 16:25:01 Final result by Ignacia Harper MD (09/03/25 16:25:01) Impression: IMPRESSION: No acute chest disease. Narrative: DICTATING PHYSICIAN: Ignacia Harper M.D. EXAM: Chest AP upright portable view 09/03/2025 COMPARISON: 11/30/2021, 10/04/2019 HISTORY: Palpitations starting 2 hours ago. No current chest complaints. Pain radiates into the left shoulder. FINDINGS: The cardiomediastinal silhouette size and contours are within normal limits. No vascular congestion, pneumothorax, pleural effusions, or alveolar consolidation. Visualized upper abdomen is unremarkable. No acute osseous abnormality. Preliminary result by Ignacia Harper MD (09/03/25 16:16:29) Impression: IMPRESSION: No acute chest disease. Narrative: DICTATING PHYSICIAN: Ignacia Harper M.D. EXAM: Chest AP upright portable view 09/03/2025 COMPARISON: 11/30/2021, 10/04/2019 HISTORY: Palpitations starting 2 hours ago. No current chest complaints. Pain radiates into the left shoulder. FINDINGS: The cardiomediastinal silhouette size and contours are within normal limits. No vascular congestion, pneumothorax, pleural effusions, or alveolar consolidation. Visualized upper abdomen is unremarkable. No acute osseous abnormality. XR CHEST SINGLE VIEW PORTABLE (Canceled) Emergency Department Progress. (Note: only significant re-evaluation times are documented, patientsin the emergency department typically have many more re- evaluations than reasonably document) 4:26 PM CDT Re-eval: Patient feeling better, no new issues, wants to go home, she is comfortable with dischargeand follow up with primary care doctor. All questions have been answered to the patient and any friends/family present currently present. In reviewing the patient's chart, their primary care doctor is NONE PROVIDER. XR CHEST SINGLE VIEW PORTABLE Final Result IMPRESSION: No acute chest disease. CMP (Comprehensive Metabolic Panel) Final Result Complete Blood Count (CBC) WITH Diff Final Result TROPONIN I, HIGH SENSITIVITY (HSTRP) Final Result Thyroid Stimulating Hormone (TSH) [id number] Final Result Extra Tubes Final Result EKG 12 LEAD (Results Pending) TROPONIN I, HIGH SENSITIVITY (HSTRP) (Results Pending) Labs Reviewed CMP (COMPREHENSIVE METABOLIC PANEL) - Abnormal; Notable for the following components: Result Value TOTAL PROTEIN 8.2 (*) All other components within normal limits TROPONIN I, HIGH SENSITIVITY (HSTRP) - Normal THYROID STIMULATING HORMONE (TSH) - Normal COMPLETE BLOOD COUNT (CBC) WITH DIFF Narrative: The following orders were created for panel order Complete Blood Count (CBC) WITH Diff. Procedure Abnormality Status --------- ------ CBC with Auto Differential[[id number]] Final result Please view results for these tests on the individual orders. EXTRA TUBES Narrative: The following orders were created for panel order Extra Tubes. Procedure Abnormality Status --------- ------ Blue Top Tube[[id number]] Final result Gold Top Tube[[id number]] Final result Please view results for these tests on the individual orders. TROPONIN I, HIGH SENSITIVITY (HSTRP) CBC WITH AUTO DIFFERENTIAL BLUE TOP TUBE GOLD TOP TUBE I have reviewed the available labs, imaging, and nursing notes. Prescription Considerations for Home: Medication List ASK your doctor about these medications nicotine 21 MG/24HR Pt24 Commonly known as: NICODERM CQ 1 Patch by Transdermal route every 24 hours. Medical Decision Making The patient's palpitations does not appear to come from any acute emergent cardiothoracic condition. The patient's vital signs are normal. I have spoken with the patient at great length and she is comfortable with discharge home and followup with a primary care physician as an outpatient. she is satting well at this time. Life-Threatening Causes Cardiac Acute Coronary Syndrome (ACS) - IN, unstable angina Aortic dissection - tearing pain, radiates to back, unequal pulses Cardiac tamponade - Sneed's triad: hypotension, JVD, muffled heart sounds Tension pneumothorax - unilateral decreased breath sounds, hypotension, tracheal deviation Pulmonary embolism (PE) - pleuritic chest pain, dyspnea, tachycardia, hypoxia Esophageal rupture (Boerhaave's syndrome) - severe pain after vomiting, subcutaneous emphysema Common but Non-Emergent Causes Pulmonary Pneumonia Pleuritis Pneumothorax (non-tension) Pulmonary hypertension Cardiac (Non-ACS) Stable angina Pericarditis - pleuritic, improves leaning forward Mitral valve prolapse Psychogenic Panic attack Anxiety Somatization disorder Musculoskeletal Costochondritis - reproducible with palpation Muscle strain Rib fracture Tietze's syndrome - like costochondritis but with swelling Gastrointestinal GERD - burning, post-meal, worse lying down Esophageal spasm Esophagitis Peptic ulcer disease Biliary colic / cholecystitis Pancreatitis Hiatal hernia Other Considerations Herpes zoster (shingles) - pain before rash Mediastinal masses or lymphadenopathy Thoracic outlet syndrome Clinical Impression 1. Palpitations Disposition: Discharge Disposition: Discharge home Condition:Stable CLINICAL IMPRESSION: 1. Palpitations Current Outpatient Medications Medication Instructions nicotine (NICODERM CQ) 21 MG/24HR PATCH 24 HR 1 Patch, Transdermal, EVERY 24 HOURS Medications Ordered Prior to Encounter[4] Maximino Henry D.O. Emergency/Tactical Medicine Attention patients/caregivers: Secondary to the medical cares act notes and test results are now immediately released to patients and caregivers. If you are the patient referenced in this documentation or a caregiver thereof and are reading this chart, please be aware that there is medical terminology, abbreviations, and methods of communication which are intended for medical professional interpretation only. If you have questions, please contact your primary care provider. If there are specific physician's or contact information referenced in this chart do not use it as it may be out of date. Certain laboratory values or radiologic studies may have findings that appear abnormal, these were reviewed by your physician and do not require further emergent or urgent medical attention. If you have further questions about any testing performed please contact your primary care provider for clarification or further discussion. Portions of this chart may have been completed with voice recognition software or Artificial Intelligence capabilities and may contain slight errors unrecognizable by the users. This would in no way affect the patient's care and is meant to improve length and quality of medical decision making and history taking. [1] No current facility-administered medications for this encounter. Current Outpatient Medications Medication Sig Dispense Refill nicotine (NICODERM CQ) 21 MG/24HR PATCH 24 HR 1 Patch by Transdermal route every 24 hours. 30 Patch0 [2] No Known Allergies [3] Past Surgical History: Procedure Laterality Date CERVIX SURGERY cervical loop [4] No current facility-administered medications on file prior to encounter. Current Outpatient Medications on File Prior to Encounter Medication Sig Dispense Refill nicotine (NICODERM CQ) 21 MG/24HR PATCH 24 HR 1 Patch by Transdermal route every 24 hours. 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 She denies current pain. documented in this encounter Miscellaneous Notes * PatientPass Patient Instructions - Maximino Henry DO - 09/03/2025 3:53 PM CDT Images from the original note were not included. Patient Education Table of Contents Palpitations To view videos and all your education online visit, [email or web address] or scan this QR code with your smartphone. Access to this content will in one year. Palpitations Palpitations are feelings that your heartbeat is not normal. Your heartbeat may feel like it is: Uneven (irregular). Faster than normal. Fluttering. Skipping a beat. This is usually not a serious problem. However, a doctor will do tests and check your medical history to make sure that you do not have a serious heart problem. Follow these instructions at home: Watch for any changes in your condition. Tell your doctor about any changes. Take these actions to help manage your symptoms: Eating and drinking Follow instructions from your doctor about things to eat and drink. You may be told to avoid these things: Drinks that have caffeine in them, such as coffee, tea, soft drinks, and energy drinks. Chocolate. Alcohol. Diet pills. Lifestyle Try to lower your stress. These things can help you relax: ? Yoga. ? Deep breathing and meditation. ? Guided imagery. This is using words and images to create positive thoughts. ? Exercise, including swimming, jogging, and walking. Tell your doctor if you have more abnormal heartbeats when you are active. If you have chest pain or feel short of breath with exercise, do not keep doing the exercise until you are seen by your doctor. ? Biofeedback. This is using your mind to control things in your body, such as your heartbeat. Get plenty of rest and sleep. Keep a regular bed time. Do not use drugs, such as cocaine or ecstasy. Do not use marijuana. Do not smoke or use any products that contain nicotine or tobacco. If you need help quitting, ask your doctor. General instructions Take zqqj-zet-pwwosiv and prescription medicines only as told by your doctor. Keep all follow-up visits. You may need more tests if palpitations do not go away or get worse. Contact a doctor if: You keep having fast or uneven heartbeats for a long time. Your symptoms happen more often. Get help right away if: You have chest pain. You feel short of breath. You have a very bad headache. You feel dizzy. You faint. These symptoms may be an emergency. Get help right away. Call your local emergency services ([address] [facility] [place] Do not wait to see if the symptoms will go away. Do not drive yourself to the hospital. Summary Palpitations are feelings that your heartbeat is uneven or faster than normal. It may feel like your heart is fluttering or skipping a beat. Avoid food and drinks that may cause this condition. These include caffeine, chocolate, and alcohol. Try to lower your stress. Do not smoke or use drugs. Get help right away if you faint, feel dizzy, feel short of breath, have chest pain, or have a verybad headache. This information is not intended to replace advice given to you by your health care provider. Make sure you discuss any questions you have with your health care provider. Document Released: 2009-08-14 Document Updated: 2022-03-29 Document Reviewed: 2022-03-29 Elsevier Patient Education ? 2024 [employer] * PatientPass Patient Instructions - Maximino Henry DO - 09/03/2025 2:38 PM CDT Images from the original note were not included. Patient Education Table of Contents Palpitations To view videos and all your education online visit, [email or web address] or scan this QR code with your smartphone. Access to this content will in one year. Palpitations Palpitations are feelings that your heartbeat is not normal. Your heartbeat may feel like it is: Uneven (irregular). Faster than normal. Fluttering. Skipping a beat. This is usually not a serious problem. However, a doctor will do tests and check your medical history to make sure that you do not have a serious heart problem. Follow these instructions at home: Watch for any changes in your condition. Tell your doctor about any changes. Take these actions to help manage your symptoms: Eating and drinking Follow instructions from your doctor about things to eat and drink. You may be told to avoid these things: Drinks that have caffeine in them, such as coffee, tea, soft drinks, and energy drinks. Chocolate. Alcohol. Diet pills. Lifestyle Try to lower your stress. These things can help you relax: ? Yoga. ? Deep breathing and meditation. ? Guided imagery. This is using words and images to create positive thoughts. ? Exercise, including swimming, jogging, and walking. Tell your doctor if you have more abnormal heartbeats when you are active. If you have chest pain or feel short of breath with exercise, do not keep doing the exercise until you are seen by your doctor. ? Biofeedback. This is using your mind to control things in your body, such as your heartbeat. Get plenty of rest and sleep. Keep a regular bed time. Do not use drugs, such as cocaine or ecstasy. Do not use marijuana. Do not smoke or use any products that contain nicotine or tobacco. If you need help quitting, ask your doctor. General instructions Take cwgc-wju-dtmcvxp and prescription medicines only as told by your doctor. Keep all follow-up visits. You may need more tests if palpitations do not go away or get worse. Contact a doctor if: You keep having fast or uneven heartbeats for a long time. Your symptoms happen more often. Get help right away if: You have chest pain. You feel short of breath. You have a very bad headache. You feel dizzy. You faint. These symptoms may be an emergency. Get help right away. Call your local emergency services (911 [place]he [place] Do not wait to see if the symptoms will go away. Do not drive yourself to the hospital. Summary Palpitations are feelings that your heartbeat is uneven or faster than normal. It may feel like your heart is fluttering or skipping a beat. Avoid food and drinks that may cause this condition. These include caffeine, chocolate, and alcohol. Try to lower your stress. Do not smoke or use drugs. Get help right away if you faint, feel dizzy, feel short of breath, have chest pain, or have a verybad headache. This information is not intended to replace advice given to you by your health care provider. Make sure you discuss any questions you have with your health care provider. Document Released: 2009-08-14 Document Updated: 2022-03-29 Document Reviewed: 2022-03-29 [employer] Patient Education ? 2024 [employer]. documented in this encounter Plan of Treatment Pending Results Name Type Priority Associated Diagnoses Date /Time EKG 12 LEAD ECG STAT 09/03/2025 1: 32 PM CDT documented as of this encounter Procedures Procedure Name Priority Date/Time Associated Diagnosis Comments XR CHEST SINGLE VIEW PORTABLE STAT 09/03/2025 4:15 PM CDT TROPONIN I, HIGH SENSITIVITY (HSTRP) STAT 09/03/2025 3:57 PM CDT EXTRA TUBES STAT 09/03/2025 1:38 PM CDT TROPONIN I, HIGH SENSITIVITY (HSTRP) STAT 09/03/2025 1:38 PM CDT GOLD TOP TUBE STAT 09/03/2025 1:38 PM CDT BLUE TOP TUBE STAT 09/03/2025 1:38 PM CDT CBC WITH AUTO DIFFERENTIAL STAT 09/03/2025 1:38 PM CDT THYROID STIMULATING HORMONE (TSH) STAT 09/03/2025 1:38 PM CDT CMP (COMPREHENSIVE METABOLIC PANEL) STAT 09/03/2025 1:38 PM CDT COMPLETE BLOOD COUNT (CBC) WITH DIFF STAT 09/03/2025 1:38 PM CDT EKG 12 LEAD STAT 09/03/2025 1:32 PM CDT EKG SCAN 09/03/2025 12:00 AM CDT documented in this encounter Results * XR CHEST SINGLE VIEW PORTABLE (09/03/2025 4:15 PM CDT) Anatomical Region Laterality Modality Chest N/A Digital Radiogra phy 09/03/2025 4:15 PM CDT Impressions 09/03/2025 4:18 PM CDT IMPRESSION: No acute chest disease. Narrative 09/03/2025 4:18 PM CDT DICTATING PHYSICIAN: Ignacia Harper M.D. EXAM: Chest AP upright portable view 09/03/2025 COMPARISON: 11/30/2021, 10/04/2019 HISTORY: Palpitations starting 2 hours ago. No current chest complaints. Pain radiates into the left shoulder. FINDINGS: The cardiomediastinal silhouette size and contours are within normal limits. No vascular congestion, pneumothorax, pleural effusions, or alveolar consolidation. Visualized upper abdomen is unremarkable. No acute osseous abnormality. Procedure Note Ignacia Harper MD - 09/03/2025 DICTATING PHYSICIAN: Ignacia Harper M.D. EXAM: Chest AP upright portable view 09/03/2025 COMPARISON: 11/30/2021, 10/04/2019 HISTORY: Palpitations starting 2 hours ago. No current chest complaints.Pain radiates into the left shoulder. FINDINGS: The cardiomediastinal silhouette size and contours are withinnormal limits. No vascular congestion, pneumothorax, pleural effusions, oralveolar consolidation. Visualized upper abdomen is unremarkable. No acuteosseous abnormality. IMPRESSION: No acute chest disease. us Maximino Henry DO IMG DIAGNOSTIC ORDERABL ES Final Result * TROPONIN I, HIGH SENSITIVITY (HSTRP) (09/03/2025 3:57 PM CDT) Only the most recent of2 resultswithin the time period is included. TROPONIN I, HIGH SENSITIVITY- [place] <2.7 <=14.0 ng/L 09/03/2025 4:33 PM CDT [facility] Comment: High-sensitivity troponin I results are reported in ng/L making the result appear to be 1,000 times higher than the contemporary troponin I value which is reported in ng/ml. Results from [facility]. Blood Venipuncture / Unknown 09/03/2025 3:57 PM CDT 09/03/2025 4:09 PM CDT Maximino Henry DO CHEMISTRY ORDERABLES Fi nal Result Performing Organization Address [facility] Co de Phone Number [facility] [address] [place] [address] * Gold Top Tube (09/03/2025 1:38 PM CDT) Blood No Phlebotomy Charged / Unknown 09/03/2025 1:38 PM CDT 09/03/2025 1:58 PM CDT Maximino Henry DO CHEMISTRY ORDERABLES Fi nal Result Performing Organization Address [facility] Co de Phone Number [facility] [address] [place] [address] * Blue Top Tube (09/03/2025 1:38 PM CDT) Blood No Phlebotomy Charged / Unknown 09/03/2025 1:38 PM CDT 09/03/2025 1:58 PM CDT Maximino Henry DO HEMATOLOGY ORDERABLES F inal Result Performing Organization Address [facility] Co de Phone Number [facility] [place] [address] * CBC with Auto Differential (09/03/2025 1:38 PM CDT) [facility] WBC 8.84 4.00 - 12.00 10(3)/mcL 09/03/2025 2:00 PM CDT [facility] RBC 4.37 3.80 - 5.30 10(6)/mcL 09/03/2025 2:00 PM CDT [facility] HEMOGLOBIN (HGB) 13.2 12.0 - 15.8 g/dL 09/03/2025 2:00 PM CDT [facility] HEMATOCRIT (HCT) 40.1 36.0 - 47.0 % 09/03/2025 2:00 PM CDT [facility] MCV 91.8 82.0 - 96.0 fL 09/03/2025 2:00 PM CDT [facility] MCH 30.2 26.0 - 34.0 pg 09/03/2025 2:00 PM CDT [facility] MCHC 32.9 31.0 - 36.0 g/dL 09/03/2025 2:00 PM CDT [facility] PLATELET COUNT 270 140 - 440 10(3)/mcL 09/03/2025 2:00 PM CDT [facility] RDW 13.3 11.8 - 15.5 % 09/03/2025 2:00 PM CDT [facility] MPV 11.8 9.7 - 12.4 fL 09/03/2025 2:00 PM CDT [facility] NEUTROPHILS 66.0 47.0 - 73.0 % 09/03/2025 2:00 PM CDT [facility] LYMPHOCYTES 24.7 18.0 - 42.0 % 09/03/2025 2:00 PM CDT [facility] MONOCYTES 7.5 4.0 - 12.0 % 09/03/2025 2:00 PM CDT [facility] EOSINOPHILS 1.0 0.0 - 5.0 % 09/03/2025 2:00 PM CDT [facility] BASOPHILS 0.6 0.0 - 1.0 % 09/03/2025 2:00 PM CDT [facility] IMMATURE GRANULOCYTE 0.2 0.0 - 0.4 % 09/03/2025 2:00 PM CDT [facility] ABSOLUTE NEUTROPHILS 5.84 1.60 - 7.70 10(3)/mcL 09/03/2025 2:00 PM CDT [facility] ABSOLUTE LYMPHOCYTES 2.18 1.30 - 3.20 10(3)/mcL 09/03/2025 2:00 PM CDT [facility] ABSOLUTE MONOCYTES 0.66 0.20 - 1.00 10(3)/mcL 09/03/2025 2:00 PM CDT [facility] ABSOLUTE EOSINOPHIL 0.09 0.00 - 0.40 10(3)/mcL 09/03/2025 2:00 PM CDT [facility] ABSOLUTE BASOPHILS 0.05 0.00 - 0.10 10(3)/mcL 09/03/2025 2:00 PM CDT [facility] ABSOLUTE IMMATURE GRANULOCYTE 0.02 0.00 - 0.03 10 (3) mcL. 09/03/2025 2:00 PM CDT [facility] NRBC PER 100 WBC 0 09/03/20 25 2:00 PM CDT [facility] Blood Venipuncture / Unknown 09/03/2025 1:38 PM CDT 09/03/2025 1:56 PM CDT us Maximino Henry DO HEMATOLOGY ORDERABLES F inal Result [facility] [address] [place] [address] * Thyroid Stimulating Hormone (TSH) [id number] (09/03/2025 1:38 PM CDT) TSH 0.861 0.300 - 5.000 mIU/L 09/03/2025 2:37 PM CDT [facility] Blood Venipuncture / Unknown 09/03/2025 1:38 PM CDT 09/03/2025 1:56 PM CDT us Maximino Henry DO CHEMISTRY ORDERABLES Fi nal Result [facility] [address] [place] [address] * (ABNORMAL) CMP (Comprehensive Metabolic Panel) (09/03/2025 1:38 PM CDT) SODIUM 137 136 - 145 mmol/L 09/03/2025 2:18 PM CDT [facility] POTASSIUM 3.9 3.5 - 5.1 mmol/L 09/03/2025 2:18 PM CDT [facility] CHLORIDE 103 98 - 107 mmol/L 09/03/2025 2:18 PM CDT [facility] CO2, VENOUS 23 22 - 30 mmol/L 09/03/2025 2:18 PM CDT [facility] ANION GAP 14.9 <18.0 mmol/L 09/03/2025 2:18 PM CDT [facility] GLUCOSE 79 70 - 99 mg/dL 09/03/2025 2:18 PM CDT [facility] BUN 12 5 - 18 mg/dL 09/03/2025 2:18 PM CDT [facility] CREATININE, BLOOD 0.88 0.60 - 1.00 mg/dL 09/03/2025 2:18 PM CDT [facility] BUN/CREATININE RATIO 14 12 - 20 ratio 09/03/2025 2:18 PM CDT [facility] TOTAL PROTEIN 8.2(H) 6.0 - 8.0 g/dL 09/03/2025 2:18 PM CDT [facility] ALBUMIN 5.0 3.5 - 5.0 g/dL 09/03/2025 2:18 PM CDT [facility] A/G RATIO 1.6 1.0 - 2.2 09/03/2025 2:18 PM CDT [facility] CALCIUM 9.6 8.7 - 10.5 mg/dL 09/03/2025 2:18 PM CDT [facility] T BILI 0.4 0.2 - 1.2 mg/dL 09/03/2025 2:18 PM CDT [facility] SGOT (AST) 42 <43 U/L 09/03/2025 2:18 PM CDT [facility] SGPT (ALT) 48 <56 U/L 09/03/2025 2:18 PM CDT [facility] ALKALINE PHOSPHATASE 68 40 - 150 U/L 09/03/2025 2:18 PM CDT [facility] GFR, ESTIMATED >60 >=60 09/03/2025 2:18 PM CDT [facility] Comment: Creatinine Clearance is the preferred criteria for selecting drug dose adjustments in renally impaired patients. The GFR is provided as additional pertinent clinical information. GFR is reported in mL/min/1.73 sq m. Calculation based on the 2020 Chronic Kidney Disease Epidemiology Collaboration (CKD-EPI) equation refit without adjustment for race. GFR, EST. >60 >=60 2:18 PM CDT [facility] Comment: Creatinine Clearance is the preferred criteria for selecting drug dose adjustments in renally impaired patients. The GFR is provided as additional pertinent clinical information. GFR is reported in mL/min/1.73 sq m. Calculation based on the 2009 Chronic Kidney Disease Epidemiology Collaboration (CKD-EPI). GFR, EST. NONAFRICAN >60 >=60 09/03/2025 2:18 PM CDT [facility] Comment: Creatinine Clearance is the preferred criteria for selecting drug dose adjustments in renally impaired patients. The GFR is provided as additional pertinent clinical information. GFR is reported in mL/min/1.73 sq m. Calculation based on the 2009 Chronic Kidney Disease Epidemiology Collaboration (CKD-EPI). Blood Venipuncture / Unknown 09/03/2025 1:38 PM CDT 09/03/2025 1:56 PM CDT us Maximinonancy Valdezshun Henry DO CHEMISTRY ORDERABLES Fi nal Result Performing Organization Address [facility] Co de Phone Number [facility] [place] [address] * EKG SCAN (09/03/2025 12:00 AM CDT) 09/03/2025 us Provider Scan IMG ECG ORDERABLES Final Result Performing Organization Address [facility] Co de Phone Number RESULTING [facility]ENCY documented in this encounter Visit Diagnoses Diagnosis Palpitations- Primary documented in this encounter Care Teams Correctional Casework Specialist Relationship Specialty Start Date End Date Provider, None [place] PCP - General 09/03/25 documented as of this encounter
--- OUTSIDE RECORDS SUMMARY | 2025-09-03 13:45 | XMS_ITS | Clinical Summary ---
Author Organization [facility] Address [address] [place] [address] Phone Care Team Providers Care Antique Clock Repairer Name Role Phone Yandy Lawrence MD Primary Care Provider [phone] Allergies No known active allergies Medications nicotine (NICODERM CQ) 21 MG/24HR PATCH 24 HRIndications:E ncounter for smoking cessation counseling 1 Patch by Transdermal route every 24 hours. 30 Patch 4 Active Active Problems No known active problems Encounters Date Type Department Care Team Description 09/03/2025 1:27 PM CDT - [facility] [address] [place] [address] Maximino Henry DO 09/03/2025 Travel 08/06/2025 [facility] [place] [address] Yandy Lawrence MD 07/06/2025 Telephone [facility] [address] [place] [address] Yandy Lawrence MD Patient Outreach 06/05/2025 2:44 AM CDT - 06/05/2025 3:33 AM CDT [facility] [address] [place] [address] Shawn Lyn MD Foot sprain, left, initial encounter Discharge Disposition: Discharged to home or Selfcare 06/05/2025 Travel from Last 3 Months Immunizations Immunization Administration Dates Next Due MMR [...] Mass Index 37.03 09/03/2025 1:32 PM CDT Plan of Treatment Health Maintenance Due Date Last Done Comments Pneumococcal Immunization Co mbined (1 of 2 - PCV) 2009 Pap Smear 2011 Human Papillomavirus (HPV) Immunization (1 - 3-dose SCDM series) 2017 Cervical Cancer Screening (CCS) 2020 HPV/Cotest 2020 Influenza Immunization (#1) 2025 SARS-COV-2 Immunization ( season) 2025 Td Immunization Every 10 Yea rs (Adults [...] patient's age to complete this topic Procedures * The patient is currently admitted. The information in this section might not be complete until the patient is discharged. Procedure Name Priority Date/Time Associated Diagnosis Comments XR ANKLE 3 OR MORE VIEWS LEFT STAT 06/05/2025 3:05 AM CDT XR FOOT 3 OR MORE VIEWS LEFT STAT 06/05/2025 3:05 AM CDT HEPATITIS C ANTIBODY Routine 07/05/2023 12:01 PM CDT Adult general medical exam from Last 3 Months or Most Recently Relevant to Health Maintenance Results * XR FOOT 3 OR MORE VIEWS LEFT (06/05/2025 3:05 AM CDT) Anatomical Region Laterality Modality LOWER EXTREMITY, foot Left Digital Ra diography 06/05/2025 3:31 AM CDT Impressions 06/05/2025 3:33 AM CDT IMPRESSION: No acute osseous abnormality. Narrative 06/05/2025 3:33 AM CDT EXAM DESCRIPTION: XR FOOT 3 OR MORE VIEWS LEFT; XR ANKLE 3 OR MORE VIEWS LEFT REASON FOR STUDY: fell through a porch yesterday. pain, swelling, r/o frx ; fell through a porch yesterday. swelling, pain, r/o frx TECHNIQUE: 3 radiographic view(s) of the left foot , 3 radiographic views of the left ankle. COMPARISON: None FINDINGS: BONES/JOINTS: There is no acute fracture, malalignment or osseous abnormality. The joint spaces are normal. SOFT TISSUES: Soft tissue swelling of the foot. THIS IS AN ELECTRONICALLY VERIFIED FINAL REPORT 06/05/2025 3:31 AM - Electronically signed by Arianna Cuevas M.D. FT: FT Report ID: [id number] Reading Location: [id number] Procedure Note Arianna Carrasco MD - 06/05/2025 EXAM DESCRIPTION: XR FOOT 3 OR MORE VIEWS LEFT; XR ANKLE 3 OR MORE VIEWS LEFT REASON FOR STUDY: fell through a porch yesterday. pain, swelling, r/o frx ; fell through a porch yesterday. swelling, pain, r/o frx TECHNIQUE: 3 radiographic view(s) of the left foot , 3 radiographic views of the left ankle. COMPARISON: None FINDINGS: BONES/JOINTS: There is no acute fracture, malalignment or osseous abnormality. The joint spaces are normal. SOFT TISSUES: Soft tissue swelling of the foot. THIS IS AN ELECTRONICALLY VERIFIED FINAL REPORT 06/05/2025 3:31 AM - Electronically signed by Arainna Cuevas M.D. FT: FT Report ID: [id number] Reading Location: [id number] IMPRESSION: No acute osseous abnormality. Shawn Lyn MD IMG DIAGNOSTIC ORDERABLES Final Result * XR ANKLE 3 OR MORE VIEWS LEFT (06/05/2025 3:05 AM CDT) Anatomical Region Laterality Modality LOWER EXTREMITY, ankle Left Digital R adiography 06/05/2025 3:31 AM CDT Impressions 06/05/2025 3:33 AM CDT IMPRESSION: No acute osseous abnormality. Narrative 06/05/2025 3:33 AM CDT EXAM DESCRIPTION: XR FOOT 3 OR MORE VIEWS LEFT; XR ANKLE 3 OR MORE VIEWS LEFT REASON FOR STUDY: fell through a porch yesterday. pain, swelling, r/o frx ; fell through a porch yesterday. swelling, pain, r/o frx TECHNIQUE: 3 radiographic view(s) of the left foot , 3 radiographic views of the left ankle. COMPARISON: None FINDINGS: BONES/JOINTS: There is no acute fracture, malalignment or osseous abnormality. The joint spaces are normal. SOFT TISSUES: Soft tissue swelling of the foot. THIS IS AN ELECTRONICALLY VERIFIED FINAL REPORT 06/05/2025 3:31 AM - Electronically signed by Arianna Cuevas M.D. FT: FT Report ID: [id number] Reading Location: [id number] Procedure Note Arianna Carrasco MD - 06/05/2025 EXAM DESCRIPTION: XR FOOT 3 OR MORE VIEWS LEFT; XR ANKLE 3 OR MORE VIEWS LEFT REASON FOR STUDY: fell through a porch yesterday. pain, swelling, r/o frx ; fell through a porch yesterday. swelling, pain, r/o frx TECHNIQUE: 3 radiographic view(s) of the left foot , 3 radiographic views of the left ankle. COMPARISON: None FINDINGS: BONES/JOINTS: There is no acute fracture, malalignment or osseous abnormality. The joint spaces are normal. SOFT TISSUES: Soft tissue swelling of the foot. THIS IS AN ELECTRONICALLY VERIFIED FINAL REPORT 06/05/2025 3:31 AM - Electronically signed by Arianna Cuevas M.D. FT: FT Report ID: [id number] Reading Location: [id number] IMPRESSION: No acute osseous abnormality. Shawn Lyn MD [facility] DIAGNOSTIC ORDERABLES Final Result * HEPATITIS C ANTIBODY (07/05/2023 12:01 PM CDT) hepatitis C antibody 0.09 <1 S/CO [facility] ARCH [id number] 07/05/2023 9:27 PM CDT [facility] Comment: Signal/Cutoff ratio < 0.79 is Nondetected Signal/Cutoff ratio 0.80-0.99 is Grayzone Signal/Cutoff ratio > 0.99 is Detected Supplemental assays are recommended if signal/cutoff ratio is >/=1.00. Signal/cutoff ratio result >/= 5.00 is 97% predictive of positivity for recombinant immunoblot assay (RIBA) and will be reported to the [place] Department of Public Health as required. Blood Venipuncture / Unknown 07/05/2023 12:01 PM CDT 07/05/2023 12:23 PM CDT us Janet Camarillo MD CHEMISTRY ORDERABLES Final R esult [facility] [address] [place] [address], [place] from Last 3 Months or Most Recently Relevant to Health Maintenance Care Teams Antique Clock Repairer Relationship Specialty Start Date End Date Yandy Lawrence MD [address] [place] [address] PCP - General Family Medicine 07/18/24
--- OUTSIDE RECORDS SUMMARY | 2025-09-03 13:45 | XMS_ITS | Encounter Summary ---
Author Organization [facility] Address [address] [place] [address] Phone Care Team Providers Care Classification And Treatment Director Name Role Phone Provider, None Primary Care Provider Mary Ellen Cooper APRN, LIBRARIAN HELPER Unavailable [phone] Mary Ellen Dias APRN, ANA Primary Care Provider Janet Camarillo MD Primary Care Provider [phone] Yandy Lawrence MD Primary Care Provider + [phone] Encounter Details Date Type Department Care Team (Late st Contact Info) Description 11/23/2021 Telephone [facility] Hospitalist Program [address] [place] [address] Provider, None [place] Social History Tobacco Use Types Packs/Day Years [...] COVID-19? No / Unsure 11/23/2021 10:59 AM HAND CANDLE DIPPER documented as of this encounter Miscellaneous Notes * Telephone Encounter - Steven Camp - 11/23/2021 8:19 AM CST ----- Message from Heidi Kearns sent at 11/22/2021 1:25 PM HAND CANDLE DIPPER ----- Regarding: New Pt appointment New [facility] Primary Provider Request Insurance of patient: [place] Name of person calling: Caroline Relationship to patient:self Preferred phone number: [phone] Alternate phone number: none Region / Office location preference: [place] Provider preference (male/female, specific provider name): Female Willing to see someone other than physician, such as LEAVE MANAGER, PA, resident? Yes Patient reason for appointment/any current symptoms: Establish care, physical Other information (including need for swahili teacher): none Route ALL calls to: [facility] PATIENT DIRECTORY ASSISTANCE OPERATOR CANDLE DIPPER documented in this encounter Plan of Treatment Not on file documented as of this encounter Visit Diagnoses Not on filedocumented in this encounter Care Teams Classification And Treatment Director Relationship Specialty Start Date End Date Provider, None [place] PCP - General 09/26/19 11/27/21 Mary Ellen Dias APRN, LIBRARIAN HELPER [address] [place] [address] PCP - General Advanced Practice Nurse 11/28/21 Janet Camarillo MD [address] [place] [address] PCP - General Family Medicine 07/04/23 07/17/24 Yandy Lawrence MD [address] [place] [address] PCP - General Family Medicine 07/18/24 Mary Ellen Dias APRN, LIBRARIAN HELPER [address] [place] [address] Nurse Practitioner Advanced Practice Nurse 11/28/2110/13 documented as of this encounter
--- OUTSIDE RECORDS SUMMARY | 2025-09-03 13:45 | XMS_ITS | Encounter Summary ---
Author Organization [employer] Care Team Providers Care Petrographer Name Role Phone Yandy Lawrence MD Primary Care Provider [phone] Encounter Details Date Type Department Care Team (Latest Contact Info) Description 09/03/2025 Travel Social History Tobacco Use Types Packs/Day Years [...] on file documented as of this encounter Plan of Treatment Not on file documented as of this encounter Visit Diagnoses Not on filedocumented in this encounter Care Teams Petrographer Relationship Specialty Start Date End Date Yandy Lawrence MD [address] [place] [address] PCP - General Family Medicine 07/18/24 documented as of this encounter
--- NOTE | 2025-09-03 15:36 | PC.NURSE ---
Pt called multiple times for MSE by EDP, no response
--- OUTSIDE RECORDS SUMMARY | 2025-09-03 17:42 | XMS_ITS | Clinical Summary ---
Author Organization [facility] Address [address] [place] [address] Phone Care Team Providers Care Animal Feeder Name Role Phone Provider, None Primary Care Provider Unavailabl e Allergies No known active allergies Medications nicotine (NICODERM CQ) 21 MG/24HR PATCH 24 HRIndications:E ncounter for smoking cessation counseling 1 Patch by Transdermal route every 24 hours. 30 Patch 4 Active Active Problems No known active problems Encounters Date Type Department Care Team Description 09/03/2025 1:27 PM CDT - 09/03/2025 4:54 PM CDT Emergency [facility] Emergency [address] [place] [id number] Maximino Henry DO Palpitations Discharge Disposition: Discharged to home or Selfcare 09/03/2025 Travel 08/06/2025 Patient Outreach [facility] [place] [address] Yandy Lawrence MD 07/06/2025 Telephone [facility] Primary [facility] - [address] [place] [address] Yandy Lawrence MD Patient Outreach 06/05/2025 2:44 AM CDT - 06/05/2025 3:33 AM CDT Emergency [facility] Emergency [address] [place] [address] Shawn Lyn MD Foot sprain, [...] Influenza Immunization (#1) 2025 SARS-COV-2 Immunization ( - season) 2025 Td Immunization Every 10 Yea [...] SENSITIVITY (HSTRP) STAT 09/03/2025 3:57 PM CDT GOLD TOP TUBE STAT 09/03/2025 1:38 PM CDT BLUE TOP TUBE STAT 09/03/2025 1:38 PM CDT CBC WITH AUTO DIFFERENTIAL STAT 09/03/2025 1:38 PM CDT EXTRA TUBES STAT 09/03/2025 1:38 PM CDT THYROID STIMULATING HORMONE (TSH) STAT 09/03/2025 1:38 PM CDT TROPONIN I, HIGH SENSITIVITY (HSTRP) STAT 09/03/2025 1:38 PM CDT COMPLETE BLOOD COUNT (CBC) WITH DIFF STAT 09/03/2025 1:38 PM CDT CMP (COMPREHENSIVE METABOLIC PANEL) STAT 09/03/2025 1:38 PM CDT EKG 12 LEAD STAT 09/03/2025 1:32 PM CDT EKG SCAN 09/03/2025 12:00 AM CDT XR ANKLE 3 OR MORE VIEWS LEFT STAT 06/05/2025 3:05 AM CDT XR FOOT 3 OR MORE VIEWS LEFT STAT 06/05/2025 3:05 AM CDT HEPATITIS C ANTIBODY Routine 07/05/2023 12:01 PM CDT Adult general medical exam from Last 3 Months or Most Recently Relevant to Health Maintenance Results * XR CHEST SINGLE VIEW PORTABLE [...] <2.7 <=14.0 ng/L 09/03/2025 4:33 PM CDT [facility] Comment: High-sensitivity troponin I results are reported in ng/L making the result appear to be 1,000 times higher than the contemporary troponin I value which is reported in ng/ml. Results from [facility]. Blood Venipuncture / Unknown 09/03/2025 3:57 PM CDT 09/03/2025 4:09 PM CDT us Maximino Henry DO CHEMISTRY ORDERABLES Fi nal Result Performing Organization Address City/[facility]/ZIP Co de Phone Number [facility] [address] [place] [address] * Gold Top Tube (09/03/2025 1:38 PM CDT) Blood No Phlebotomy Charged / Unknown 09/03/2025 1:38 PM CDT 09/03/2025 1:58 PM CDT Maximino Alejandroshun Henry DO CHEMISTRY ORDERABLES Fi nal Result Performing Organization Address City/[facility]/ZIP Co de Phone Number [facility] [address] [place] [address] * Blue Top Tube (09/03/2025 1:38 PM CDT) Blood No Phlebotomy Charged / Unknown 09/03/2025 1:38 PM CDT 09/03/2025 1:58 PM CDT Maximino Henry DO HEMATOLOGY ORDERABLES F inal Result Performing Organization Address City/[facility]/ZIP Co de Phone Number [facility] [address] [place] [address] * CBC with Auto Differential (09/03/2025 1:38 PM CDT) WBC 8.84 4.00 - 12.00 10(3)/mcL 09/03/2025 2:00 PM CDT [facility] RBC 4.37 3.80 - 5.30 10(6)/mcL 09/03/2025 2:00 PM CDT [facility] HEMOGLOBIN (HGB) 13.2 12.0 - 15.8 g/dL 09/03/2025 2:00 PM CDT [facility] HEMATOCRIT (HCT) 40.1 36.0 - 47.0 % 09/03/2025 2:00 PM CDT [facility] MCV 91.8 82.0 - 96.0 fL 09/03/2025 2:00 PM CDT [facility] MCH 30.2 26.0 - 34.0 pg 09/03/2025 2:00 PM CDT [facility] MCHC 32.9 31.0 - 36.0 g/dL 09/03/2025 2:00 PM CDT [facility] PLATELET COUNT 270 140 - 440 10(3)/mcL 09/03/2025 2:00 PM CDT [facility] RDW 13.3 11.8 - 15.5 % 09/03/2025 2:00 PM CDT [facility] MPV 11.8 9.7 - 12.4 fL 09/03/2025 2:00 PM CDT [facility] NEUTROPHILS 66.0 47.0 - 73.0 % 09/03/2025 2:00 PM CDT [facility] LYMPHOCYTES 24.7 18.0 - 42.0 % 09/03/2025 2:00 PM CDT [facility] MONOCYTES 7.5 4.0 - 12.0 % 09/03/2025 2:00 PM CDT [facility] EOSINOPHILS 1.0 0.0 - 5.0 % 09/03/2025 2:00 PM CDT [facility] BASOPHILS 0.6 0.0 - 1.0 % 09/03/2025 2:00 PM CDT [facility] IMMATURE GRANULOCYTE 0.2 0.0 - 0.4 % 09/03/2025 2:00 PM CDT [facility] ABSOLUTE NEUTROPHILS 5.84 1.60 - 7.70 10(3)/mcL 09/03/2025 2:00 PM CDT [facility] ABSOLUTE LYMPHOCYTES 2.18 1.30 - 3.20 10(3)/mcL 09/03/2025 2:00 PM CDT [facility] ABSOLUTE MONOCYTES 0.66 0.20 - 1.00 10(3)/[facility] 09/03/2025 2:00 PM CDT [facility] ABSOLUTE EOSINOPHIL 0.09 0.00 - 0.40 10(3)/[facility] 09/03/2025 2:00 PM CDT [facility] ABSOLUTE BASOPHILS 0.05 0.00 - 0.10 10(3)/[facility] 09/03/2025 2:00 PM CDT [facility] ABSOLUTE IMMATURE GRANULOCYTE 0.02 0.00 - 0.03 10 (3) mcL. 09/03/2025 2:00 PM CDT [facility] NRBC PER 100 WBC 0 09/03/20 2:00 PM CDT [facility] Blood Venipuncture / Unknown 09/03/2025 1:38 PM CDT 09/03/2025 1:56 PM CDT us Maximino Henry DO HEMATOLOGY ORDERABLES F inal Result [facility] [address] [place] [address] * Thyroid Stimulating Hormone (TSH) [id number] (09/03/2025 1:38 PM CDT) TSH 0.861 0.300 - 5.000 mIU/L 09/03/2025 2:37 PM CDT [facility] Blood Venipuncture / Unknown 09/03/2025 1:38 PM CDT 09/03/2025 1:56 PM CDT us Maximinonancy Allen Carl DO CHEMISTRY ORDERABLES Fi nal Result [facility] [address] [place] [address] * (ABNORMAL) CMP (Comprehensive Metabolic Panel) (09/03/2025 1:38 PM CDT) SODIUM 137 136 - 145 mmol/L 09/03/2025 2:18 PM CDT [facility] POTASSIUM 3.9 3.5 - 5.1 mmol/L 09/03/2025 2:18 PM CDT [facility] CHLORIDE 103 98 - 107 mmol/L 09/03/2025 2:18 PM CDT [facility] CO2, VENOUS 23 22 - 30 mmol/L 09/03/2025 2:18 PM CDT [facility] ANION GAP 14.9 <18.0 mmol/L 09/03/2025 2:18 PM CDT [facility] GLUCOSE 79 70 - 99 mg/dL 09/03/2025 2:18 PM CDT [facility] BUN 12 5 - 18 mg/dL 09/03/2025 2:18 PM CDT [facility] CREATININE, BLOOD 0.88 0.60 - 1.00 mg/dL 09/03/2025 2:18 PM CDT [facility] BUN/CREATININE RATIO 14 12 - 20 ratio 09/03/2025 2:18 PM CDT [facility] TOTAL PROTEIN 8.2(H) 6.0 - 8.0 g/dL 09/03/2025 2:18 PM CDT [facility] ALBUMIN 5.0 3.5 - 5.0 g/dL 09/03/2025 2:18 PM CDT [facility] A/G RATIO 1.6 1.0 - 2.2 09/03/2025 2:18 PM CDT [facility] CALCIUM 9.6 8.7 - 10.5 mg/dL 09/03/2025 2:18 PM CDT [facility] T BILI 0.4 0.2 - 1.2 mg/dL 09/03/2025 2:18 PM CDT [facility] SGOT (AST) 42 <43 U/L 09/03/2025 2:18 PM CDT [facility] SGPT (ALT) 48 <56 U/L 09/03/2025 2:18 PM CDT [facility] ALKALINE PHOSPHATASE 68 40 - 150 U/L 09/03/2025 2:18 PM CDT [facility] GFR, ESTIMATED >60 >=60 09/03/2025 2:18 PM CDT [facility] Comment: Creatinine Clearance is the preferred criteria for selecting drug dose adjustments in renally impaired patients. The GFR is provided as additional pertinent clinical information. GFR is reported in mL/min/1.73 sq m. Calculation based on the 2020 Chronic Kidney Disease Epidemiology Collaboration (CKD-EPI) equation refit without adjustment for race. GFR, EST. >60 >=60 2:18 PM CDT [facility] Comment: Creatinine Clearance is the preferred criteria for selecting drug dose adjustments in renally impaired patients. The GFR is provided as additional pertinent clinical information. GFR is reported in mL/min/1.73 sq m. Calculation based on the 2009 Chronic Kidney Disease Epidemiology Collaboration (CKD-EPI). GFR, EST. NONAFRICAN >60 >=60 09/03/2025 2:18 PM CDT [facility] Comment: Creatinine Clearance is the preferred [...] Henry DO CHEMISTRY ORDERABLES Fi nal Result [facility] [address] [place] [address] * EKG SCAN (09/03/2025 12:00 AM CDT) 09/03/2025 us Provider Scan IMG ECG ORDERABLES Final Result RESULTING AGENCY * XR FOOT 3 OR MORE VIEWS [...] Arianna Cuevas M.D. FT: FT Report ID: [id number] Reading Location: [id number] Procedure Note Arianna Carrasco MD - 06/05/2025 [...] Arianna Cuevas M.D. FT: FT Report ID: [id number] Reading Location: [id number] IMPRESSION: No acute osseous abnormality. Shawn Lyn MD IM DIAGNOSTIC ORDERABLES Final Result * XR ANKLE [...] Arianna Cuevas M.D. FT: FT Report ID: [id number] Reading Location: [id number] Procedure Note Arianna Carrasco MD - 06/05/2025 [...] Arianna Cuevas M.D. FT: FT Report ID: [id number] Reading Location: [place] [address] IMPRESSION: No acute osseous abnormality. Shawn Lny MD IMG DIAGNOSTIC ORDERABLES Final Result * HEPATITIS C ANTIBODY (07/05/2023 12:01 PM CDT) hepatitis C antibody 0.09 <1 S/[facility] [id number] 07/05/2023 9:27 PM CDT [facility] Comment: Signal/Cutoff ratio < 0.79 is Nondetected Signal/Cutoff ratio 0.80-0.99 is Grayzone Signal/Cutoff ratio > 0.99 is Detected Supplemental assays are recommended if signal/cutoff ratio is >/=1.00. Signal/cutoff ratio result >/= 5.00 is 97% predictive of positivity for recombinant immunoblot assay (RIBA) and will be reported to the [place] Department of Public Health as required. Blood Venipuncture / Unknown 07/05/2023 12:01 PM CDT 07/05/2023 12:23 PM CDT us Janet Camarillo MD CHEMISTRY ORDERABLES Final R esult [facility] [address] [place] [address], [place] from Last 3 Months or Most Recently Relevant to Health Maintenance Care Teams Animal Feeder Relationship Specialty Start Date End Date Provider, Allen PEREZ PCP - General 09/03/25
--- OUTSIDE RECORDS SUMMARY | 2025-09-03 17:42 | XMS_ITS | Encounter Summary ---
Author Organization [facility] Address [address] [facility] [place] [address] Phone Care Team Providers Care Printing Press Operator Name Role Phone Provider, None Primary Care Provider Unavailabl e Mary Ellen Dias APRN, ANALYTICS ARCHITECT Unavailable [phone] Mary Ellen Dias APRN, ANA Primary Care Provider Janet Camarillo MD Primary Care Provider [phone] Yandy Lawrence MD Primary Care Provider + [phone] Provider, None Primary Care Provider Unavailabl e Encounter Details Date Type Department Care Team (Late st Contact Info) Description 11/23/2021 Telephone [facility] Hospitalist Program [address] [place] [address] Provider, None [place] Social History Tobacco Use Types Packs/Day Years [...] COVID-19? No / Unsure 11/23/2021 10:59 AM MAIL SERVICE COORDINATOR documented as of this encounter Miscellaneous Notes * Telephone Encounter - Steven Camp - 11/23/2021 8:19 AM CST ----- Message from Heidi Kearns sent at 11/22/2021 1:25 PM MAIL SERVICE COORDINATOR ----- Regarding: New Pt appointment New [facility] Primary Provider Request Insurance of patient: [place] Name of person calling: Caroline Relationship to patient:self Preferred phone number: [phone] Alternate phone number: none Region / Office location preference: [place] Provider preference (male/female, specific provider name): Female Willing to see someone other than physician, such as EDI ARCHITECT, PA, resident? Yes Patient reason for appointment/any current symptoms: Establish care, physical Other information (including need for clinical athletic instructor): none Route ALL calls to: [facility] PATIENT SEWING MACHINE OPERATOR FLOORPERSON SERVICE COORDINATOR documented in this encounter Plan of Treatment Not on file documented as of this encounter Visit Diagnoses Not on filedocumented in this encounter Care Teams Printing Press Operator Relationship Specialty Start Date End Date Provider, None [place] PCP - General 09/26/19 11/27/21 Mary Ellen Dias APRN, ANALYTICS ARCHITECT [address] [place] [address] PCP - General Advanced Practice Nurse 11/28/21 Janet Camarillo MD [address] [place] [address] PCP - General Family Medicine 07/04/23 07/17/24 Yandy Lawrence MD [address] [place] [address] PCP - General Family Medicine 07/18/24 09/02/25 Provider, None [place] PCP - General 09/03/25 Mary Ellen Dias APRN, ANALYTICS ARCHITECT [address] [place] [address] Nurse Practitioner Advanced Practice Nurse 11/28/2110/13 documented as of this encounter
--- OUTSIDE RECORDS SUMMARY | 2025-09-03 17:42 | XMS_ITS | Encounter Summary ---
Author Organization [employer] Care Team Providers Care Gold Wheel Blocker And Polisher Name Role Phone Provider, None Primary Care [...] on filedocumented in this encounter Care Teams Gold Wheel Blocker And Polisher Relationship Specialty Start Date End Date Provider, None [place] PCP - General 09/03/25 documented as of this encounter
== END 2025-09-03 15:48 | disposition left against medical advice (07) ==
LOC: ANHED 15:45
PROVIDERS: Emergency Provider Preventive Medicine Aerospace Medicine
DX: R06.02 Shortness of breath (principal)
CPT/HCPCS: 93005; 99199